=== PATIENT | male | born 1950 | race Caucasian/White ===

== ENCOUNTER → 2018-01-10 15:40 | Outpatient (CLI) | payer MEDICARE, OTHER, SELFPAY ==
--- NOTE | 2018-01-10 16:10 | RAD_ITS ---
STUDY: X-RAY - RIGHT KNEE REASON FOR EXAM: Male, 67 years old. Bilateral knee pain. No known injury. Osteoarthritis. TECHNIQUE: 4 view(s) of the knee. COMPARISON: None. FINDINGS: There is mild osteopenia. There is no significant DJD of the medial or lateral compartments. There is very slight marginal osteophytic spurring of the patellofemoral articulation. There is no effusion. Periarticular soft tissues are normal. There is no fracture. RAD/Knee 4 or More Views IMPRESSION: No significant DJD. No effusion or fracture. Electronically Signed: Kiko Salazar, at 19:10 EDT Tel , Service support ,
--- NOTE | 2018-01-10 16:13 | RAD_ITS ---
STUDY: X-RAY - LEFT KNEE REASON FOR EXAM: Male, 67 years old. Bilateral knee pain. No known injury. Osteoarthritis. TECHNIQUE: 4 view(s) of the knee. COMPARISON: None. FINDINGS: Mild osteopenia. There are no significant degenerative features of the medial, lateral or patellofemoral compartments. There is no evidence of effusion. Periarticular soft tissues are normal. No fracture. RAD/Knee 4 or More Views IMPRESSION: No significant DJD. No effusion or fracture. Electronically Signed: Kiko Salazar, at 19:12 EDT Tel , Service support ,
[2018-01-10 16:53] LABS: Absolute Lymphocyte Count 1.37 X10^3/ul (0.83-4.51); Absolute Neutrophil Count 2.8 X10^3/uL (2.0-7.7); Basophil# 0.02 X10^3/uL; Basophil% 0.4 % (0-1); Eosinophil# 0.06 X10^3/uL; Eosinophils% 1.3 % (0-5); Hematocrit 47.2 % (40-54); Hemoglobin 15.7 g/dl (13.0-16.5); Lymphocyte # 1.37 X10^3/ul (4.0); Lymphocyte % 28.5 % (19-41); Mean Corp Hgb Conc 33.3 g/gl (32-36); Mean Corpuscular Hgb 32.2 pg (27.0-32.0); Mean Corpuscular Volume 96.7 fL (80-94); Mean Platelet Vol. 11.7 fl (6.2-12.0); Monocyte# 0.51 X10^3/uL; Monocyte% 10.6 % (0-10); Neutrophil # 2.83 X10^3/uL (2.7-7.7); Platelet Count 173 K/mm3 (150-450); RBC Distribution Width CV 13.6 % (11.6-14.6); RBC Distribution Width SD 48.8 fl (35.1-43.9); Red Blood Count 4.88 M/mm3 (4.6-6.2); White Blood Count 4.8 K/mm3 (4.4-11.0)
[2018-01-10 16:54] LABS: POSITIVE COUNT NO; POSITIVE DIFFERENTIAL NO; POSITIVE MORPHOLOGY NO
[2018-01-10 17:24] LABS: AST(SGOT) 18 U/L (15-37); Alanine Aminotransfer ALT/SGPT 38 U/L (16-61); Alkaline Phosphatase 75 U/L (45-117); Anion Gap 8 (5-15); BUN 31 mg/dL (7-18); BUN/Creat Ratio 29.2 RATIO (10-20); Calcium,Total 9.3 mg/dL (8.5-10.1); Chloride 105 mmol/L (98-107); Creatinine, Serum 1.06 mg/dL (0.70-1.30); EST Glomerular Filtration Rate 74 mL/min (>60); Est Glom Filt Rate - Afr Amer 90 mL/min (>60); Glucose 84 mg/dL (74-106); PSA,Total - Annual Screen 0.86 ng/mL (0.00-4.00); Potassium 4.2 mmol/L (3.5-5.1); Sodium Level 140 mmol/L (136-145); Thyroid Stim Hormone (TSH) 0.85 uIU/mL (0.358-3.74)
[2018-01-11 10:15] LABS: Vitamin D,25 Hydroxy 37.5 ng/mL (29.95-100.01)
[2018-01-14 09:10] LABS: Hep C Antibodies <0.1 s/co ratio (0.0-0.9)
== END ==
LOC: POLAB3 15:42 → RAD 15:55
PROVIDERS: Family Provider Family Medicine Geriatric Medicine; PCP Family Medicine Geriatric Medicine; Visit Provider Family Medicine Geriatric Medicine
DX: E05.00 Thyrotoxicosis with diffuse goiter without thyrotoxic crisis or storm (principal); Z13.89 Encounter for screening for other disorder; Z12.5 Encounter for screening for malignant neoplasm of prostate; E55.9 Vitamin D deficiency, unspecified
CPT/HCPCS: 36415; 73564; 80053; 82306; 84153; 84443; 85025; 86803; G0103

== ENCOUNTER → 2018-07-08 15:08 | Outpatient (CLI) | payer MEDICARE, OTHER, SELFPAY ==
[2018-07-08 17:26] LABS: Absolute Lymphocyte Count 1.69 X10^3/ul (0.83-4.51); Absolute Neutrophil Count 3.3 X10^3/uL (2.0-7.7); Basophil# 0.03 X10^3/uL; Basophil% 0.5 % (0-1); Eosinophil# 0.03 X10^3/uL; Eosinophils% 0.5 % (0-5); Lymphocyte # 1.69 X10^3/ul (4.0); Lymphocyte % 30.1 % (19-41); Mean Corp Hgb Conc 33.3 g/gl (32-36); Mean Corpuscular Hgb 32.2 pg (27.0-32.0); Mean Corpuscular Volume 96.6 fL (80-94); Mean Platelet Vol. 12.6 fl (6.2-12.0); Monocyte# 0.56 X10^3/uL; Neutrophil # 3.29 X10^3/uL (2.7-7.7); Neutrophil % 58.7 % (47-70); Platelet Count 154 K/mm3 (150-450); RBC Distribution Width CV 13.6 % (11.6-14.6); RBC Distribution Width SD 46.9 fl (35.1-43.9); Red Blood Count 4.66 M/mm3 (4.6-6.2); White Blood Count 5.6 K/mm3 (4.4-11.0)
[2018-07-08 17:38] LABS: AST(SGOT) 13 U/L (15-37); Alanine Aminotransfer ALT/SGPT 29 U/L (16-61); Albumin, Serum 3.6 g/dL (3.2-5.0); Alkaline Phosphatase 70 U/L (45-117); Anion Gap 5 (5-15); BUN 24 mg/dL (7-18); BUN/Creat Ratio 26.4 RATIO (10-20); Calcium,Total 8.6 mg/dL (8.5-10.1); Chloride 107 mmol/L (98-107); Creatinine, Serum 0.91 mg/dL (0.70-1.30); EST Glomerular Filtration Rate 88 mL/min (>60); Est Glom Filt Rate - Afr Amer 107 mL/min (>60); Globulin 3.7 g/dL (2.2-4.2); Glucose 73 mg/dL (74-106); Potassium 4.4 mmol/L (3.5-5.1); Protein, Total 7.3 g/dL (6.4-8.2); Sodium Level 141 mmol/L (136-145); Thyroid Stim Hormone (TSH) 0.86 uIU/mL (0.358-3.74)
[2018-07-08 17:46] LABS: POSITIVE COUNT NO; POSITIVE DIFFERENTIAL NO; POSITIVE MORPHOLOGY NO
== END ==
PROVIDERS: Family Provider Family Medicine Geriatric Medicine; PCP Family Medicine Geriatric Medicine; Visit Provider Family Medicine Geriatric Medicine
DX: R53.83 Other fatigue (principal); E55.9 Vitamin D deficiency, unspecified
CPT/HCPCS: 36415; 80053; 82306; 84443; 85025

== ENCOUNTER → 2019-01-20 | Outpatient (CLI) | payer MEDICARE, OTHER, SELFPAY ==
[2019-01-20 17:25] LABS: Absolute Lymphocyte Count 1.61 X10^3/ul (0.83-4.51); Absolute Neutrophil Count 3.5 X10^3/uL (2.0-7.7); Basophil# 0.01 X10^3/uL; Basophil% 0.2 % (0-1); Eosinophil# 0.03 X10^3/uL; Eosinophils% 0.5 % (0-5); Hematocrit 45.1 % (40-54); Hemoglobin 15.1 g/dl (13.0-16.5); Lymphocyte # 1.61 X10^3/ul (4.0); Lymphocyte % 28.3 % (19-41); Mean Corp Hgb Conc 33.5 g/gl (32-36); Mean Corpuscular Hgb 32.4 pg (27.0-32.0); Mean Corpuscular Volume 96.8 fL (80-94); Mean Platelet Vol. 12.1 fl (6.2-12.0); Monocyte# 0.57 X10^3/uL; Neutrophil # 3.46 X10^3/uL (2.7-7.7); Neutrophil % 60.8 % (47-70); Platelet Count 170 K/mm3 (150-450); RBC Distribution Width CV 14.1 % (11.6-14.6); RBC Distribution Width SD 49.7 fl (35.1-43.9); Red Blood Count 4.66 M/mm3 (4.6-6.2); White Blood Count 5.7 K/mm3 (4.4-11.0)
[2019-01-20 17:35] LABS: POSITIVE COUNT NO; POSITIVE DIFFERENTIAL NO; POSITIVE MORPHOLOGY NO
[2019-01-20 17:55] LABS: Vitamin D,25 Hydroxy 42.2 ng/mL (29.95-100.01)
[2019-01-20 18:15] LABS: ALB/GLOB Ratio 0.9 RATIO (0.9-2.4); AST(SGOT) 18 U/L (15-37); Alanine Aminotransfer ALT/SGPT 29 U/L (16-61); Albumin, Serum 3.5 g/dL (3.2-5.0); Alkaline Phosphatase 75 U/L (45-117); Anion Gap 9 (5-15); BUN 26 mg/dL (7-18); Calcium,Total 8.4 mg/dL (8.5-10.1); Chloride 104 mmol/L (98-107); Creatinine, Serum 1.18 mg/dL (0.70-1.30); EST Glomerular Filtration Rate 65 mL/min (>60); Est Glom Filt Rate - Afr Amer 79 mL/min (>60); Globulin 3.8 g/dL (2.2-4.2); Glucose 84 mg/dL (74-106); PSA,Total - Annual Screen 0.92 ng/mL (0.00-4.00); Potassium 3.9 mmol/L (3.5-5.1); Protein, Total 7.3 g/dL (6.4-8.2); Sodium Level 140 mmol/L (136-145); Thyroid Stim Hormone (TSH) 0.84 uIU/mL (0.358-3.74)
== END | disposition home or self-care (01) ==
LOC: POLAB3 13:50
PROVIDERS: Family Provider Family Medicine Geriatric Medicine; PCP Family Medicine Geriatric Medicine; Visit Provider Family Medicine Geriatric Medicine
DX: E55.9 Vitamin D deficiency, unspecified (principal); R53.83 Other fatigue; Z12.5 Encounter for screening for malignant neoplasm of prostate
CPT/HCPCS: 36415; 80053; 82306; 84153; 84443; 85025; G0103

== ENCOUNTER → 2019-07-29 15:17 | Outpatient (CLI) | payer MEDICARE, OTHER, SELFPAY ==
[2019-07-29 17:24] LABS: Absolute Lymphocyte Count 1.68 X10^3/uL (0.83-4.51); Basophil# 0.02 X10^3/uL; Basophil% 0.3 % (0-1); Eosinophil# 0.03 X10^3/uL; Eosinophils% 0.5 % (0-5); Hematocrit 46.2 % (40-54); Hemoglobin 15.4 g/dL (13.0-16.5); Lymphocyte # 1.68 X10^3/ul (4.0); Lymphocyte % 26.2 % (19-41); Mean Corp Hgb Conc 33.3 g/dL (32-36); Mean Corpuscular Hgb 32.5 pg (27.0-32.0); Mean Corpuscular Volume 97.5 fL (80-94); Mean Platelet Vol. 12.1 fl (6.2-12.0); Monocyte# 0.66 X10^3/uL; Monocyte% 10.3 % (0-10); NRBC Flagged by Analyzer 0 % (0-5); Neutrophil % 62.4 % (47-70); Platelet Count 151 K/mm3 (150-450); RBC Distribution Width CV 13.6 % (11.6-14.6); RBC Distribution Width SD 49.4 fl (35.1-43.9); Red Blood Count 4.74 M/mm3 (4.6-6.2); White Blood Count 6.4 K/mm3 (4.4-11.0)
[2019-07-29 17:36] LABS: AST(SGOT) 20 U/L (15-37); Alanine Aminotransfer ALT/SGPT 34 U/L (16-61); Albumin, Serum 3.6 g/dL (3.2-5.0); Alkaline Phosphatase 76 U/L (45-117); Anion Gap 5 (5-15); BUN 30 mg/dL (7-18); BUN/Creat Ratio 21.7 RATIO (10-20); Calcium,Total 8.8 mg/dL (8.5-10.1); Chloride 105 mmol/L (98-107); Creatinine, Serum 1.38 mg/dL (0.70-1.30); EST Glomerular Filtration Rate 54 mL/min (>60); Est Glom Filt Rate - Afr Amer 66 mL/min (>60); Globulin 3.7 g/dL (2.2-4.2); Glucose 85 mg/dL (74-106); Potassium 4.3 mmol/L (3.5-5.1); Protein, Total 7.3 g/dL (6.4-8.2); Sodium Level 139 mmol/L (136-145); Thyroid Stim Hormone (TSH) 0.49 uIU/mL (0.358-3.74)
== END ==
PROVIDERS: Family Provider Family Medicine Geriatric Medicine; PCP Family Medicine Geriatric Medicine; Visit Provider Family Medicine Geriatric Medicine
DX: R53.83 Other fatigue (principal)
CPT/HCPCS: 36415; 80053; 84443; 85025

== ENCOUNTER → 2020-01-29 15:03 | Outpatient (CLI) | payer MEDICARE, OTHER, SELFPAY ==
[2020-01-29 15:47] LABS: Absolute Lymphocyte Count 1.69 X10^3/uL (0.83-4.51); Absolute Neutrophil Count 2.8 X10^3/uL (2.0-7.7); Basophil# 0.04 X10^3/uL; Basophil% 0.7 % (0-1); Eosinophil# 0.09 X10^3/uL; Eosinophils% 1.7 % (0-5); Hematocrit 46.1 % (40-54); Hemoglobin 15.1 g/dL (13.0-16.5); Lymphocyte # 1.69 X10^3/ul (4.0); Lymphocyte % 31.6 % (19-41); Mean Corp Hgb Conc 32.8 g/dL (32-36); Mean Corpuscular Hgb 32.1 pg (27.0-32.0); Mean Corpuscular Volume 98.1 fL (80-94); Mean Platelet Vol. 11.9 fl (6.2-12.0); Monocyte# 0.69 X10^3/uL; Monocyte% 12.9 % (0-10); NRBC Flagged by Analyzer 0 % (0-5); Neutrophil # 2.83 X10^3/uL (2.7-7.7); Neutrophil % 52.9 % (47-70); Platelet Count 172 K/mm3 (150-450); RBC Distribution Width CV 13.4 % (11.6-14.6); RBC Distribution Width SD 49.1 fl (35.1-43.9); White Blood Count 5.4 K/mm3 (4.4-11.0)
[2020-01-29 16:03] LABS: Vitamin D,25 Hydroxy 64.2 ng/mL
[2020-01-29 16:12] LABS: AST(SGOT) 19 U/L (15-37); Alanine Aminotransfer ALT/SGPT 32 U/L (16-61); Albumin, Serum 3.7 g/dL (3.2-5.0); Alkaline Phosphatase 75 U/L (45-117); Anion Gap 5 (5-15); BUN 22 mg/dL (7-18); Calcium,Total 9.2 mg/dL (8.5-10.1); Chloride 108 mmol/L (98-107); Creatinine, Serum 0.96 mg/dL (0.70-1.30); EST Glomerular Filtration Rate 83 mL/min (>60); Est Glom Filt Rate - Afr Amer 100 mL/min (>60); Globulin 3.8 g/dL (2.2-4.2); Glucose 118 mg/dL (74-106); Potassium 3.8 mmol/L (3.5-5.1); Protein, Total 7.5 g/dL (6.4-8.2); Sodium Level 143 mmol/L (136-145); Thyroid Stim Hormone (TSH) 0.53 uIU/mL (0.358-3.74)
== END ==
PROVIDERS: PCP Family Medicine Geriatric Medicine; Visit Provider Family Medicine Geriatric Medicine
DX: E55.9 Vitamin D deficiency, unspecified (principal); R53.83 Other fatigue; Z12.5 Encounter for screening for malignant neoplasm of prostate
CPT/HCPCS: 36415; 80053; 82306; 84153; 84443; 85025; G0103

== ENCOUNTER → 2020-07-29 13:01 | Outpatient (CLI) | payer MEDICARE, OTHER, SELFPAY ==
[2020-07-29 14:41] LABS: Absolute Neutrophil Count 2.8 X10^3/uL (2.0-7.7); Basophil# 0.03 X10^3/uL; Basophil% 0.6 % (0-1); Eosinophil# 0.03 X10^3/uL; Eosinophils% 0.6 % (0-5); Hematocrit 45.3 % (40-54); Hemoglobin 15.5 g/dL (13.0-16.5); Lymphocyte % 25.8 % (19-41); Mean Corp Hgb Conc 34.2 g/dL (32-36); Mean Corpuscular Hgb 32.6 pg (27.0-32.0); Mean Corpuscular Volume 95.4 fL (80-94); Mean Platelet Vol. 12.1 fl (6.2-12.0); Monocyte# 0.55 X10^3/uL; Monocyte% 11.8 % (0-10); NRBC Flagged by Analyzer 0 % (0-5); Neutrophil # 2.83 X10^3/uL (2.7-7.7); Platelet Count 159 K/mm3 (150-450); RBC Distribution Width CV 13.2 % (11.6-14.6); RBC Distribution Width SD 46.8 fl (35.1-43.9); Red Blood Count 4.75 M/mm3 (4.6-6.2); White Blood Count 4.7 K/mm3 (4.4-11.0)
[2020-07-29 14:57] LABS: Vitamin D,25 Hydroxy 62.2 ng/mL
[2020-07-29 15:05] LABS: AST(SGOT) 16 U/L (15-37); Alanine Aminotransfer ALT/SGPT 28 U/L (16-61); Albumin, Serum 3.8 g/dL (3.2-5.0); Alkaline Phosphatase 90 U/L (45-117); Anion Gap 3 (5-15); BUN 28 mg/dL (7-18); BUN/Creat Ratio 29.4 RATIO (10-20); Chloride 105 mmol/L (98-107); Creatinine, Serum 0.95 mg/dL (0.70-1.30); EST Glomerular Filtration Rate 83 mL/min (>60); Est Glom Filt Rate - Afr Amer 101 mL/min (>60); Globulin 3.8 g/dL (2.2-4.2); Glucose 85 mg/dL (74-106); Protein, Total 7.6 g/dL (6.4-8.2); Sodium Level 139 mmol/L (136-145); Thyroid Stim Hormone (TSH) 0.61 uIU/mL (0.358-3.74)
== END ==
PROVIDERS: PCP Family Medicine Geriatric Medicine; Visit Provider Family Medicine Geriatric Medicine
DX: E55.9 Vitamin D deficiency, unspecified (principal); R53.83 Other fatigue
CPT/HCPCS: 36415; 80053; 82306; 84443; 85025

== ENCOUNTER → 2021-02-03 14:34 | Outpatient (CLI) | payer MEDICARE, OTHER, SELFPAY ==
[2021-02-03 16:03] LABS: Absolute Lymphocyte Count 1.46 X10^3/uL (0.83-4.51); Absolute Neutrophil Count 2.3 X10^3/uL (2.0-7.7); Basophil# 0.03 X10^3/uL; Basophil% 0.7 % (0-1); Eosinophil# 0.03 X10^3/uL; Eosinophils% 0.7 % (0-5); Hematocrit 44.8 % (40-54); Hemoglobin 14.9 g/dL (13.0-16.5); Lymphocyte # 1.46 X10^3/ul (0.83-4.51); Lymphocyte % 33.7 % (19-41); Mean Corp Hgb Conc 33.3 g/dL (32-36); Mean Corpuscular Hgb 31.8 pg (27.0-32.0); Mean Corpuscular Volume 95.7 fL (80-94); Mean Platelet Vol. 12.4 fl (6.2-12.0); Monocyte# 0.55 X10^3/uL; Monocyte% 12.7 % (0-10); NRBC Flagged by Analyzer 0 % (0-5); Neutrophil # 2.25 X10^3/uL (2.7-7.7); Platelet Count 164 K/mm3 (150-450); RBC Distribution Width CV 13.2 % (11.6-14.6); RBC Distribution Width SD 47.1 fl (35.1-43.9); Red Blood Count 4.68 M/mm3 (4.6-6.2); White Blood Count 4.3 K/mm3 (4.4-11.0)
[2021-02-03 16:18] LABS: Vitamin D,25 Hydroxy 79.2 ng/mL
[2021-02-03 16:24] LABS: AST(SGOT) 24 U/L (15-37); Alanine Aminotransfer ALT/SGPT 34 U/L (16-61); Albumin, Serum 3.8 g/dL (3.2-5.0); Alkaline Phosphatase 88 U/L (45-117); Anion Gap 7 (5-15); BUN 26 mg/dL (7-18); BUN/Creat Ratio 24.8 RATIO (10-20); Calcium,Total 8.9 mg/dL (8.5-10.1); Chloride 106 mmol/L (98-107); Creatinine, Serum 1.05 mg/dL (0.70-1.30); EST Glomerular Filtration Rate 74 mL/min (>60); Est Glom Filt Rate - Afr Amer 90 mL/min (>60); Globulin 3.7 g/dL (2.2-4.2); Glucose 84 mg/dL (74-106); PSA,Total - Annual Screen 1.08 ng/mL (0.00-4.00); Potassium 4.1 mmol/L (3.5-5.1); Protein, Total 7.5 g/dL (6.4-8.2); Sodium Level 141 mmol/L (136-145); Thyroid Stim Hormone (TSH) 0.62 uIU/mL (0.358-3.74)
== END ==
PROVIDERS: PCP Family Medicine Geriatric Medicine; Visit Provider Family Medicine Geriatric Medicine
DX: E55.9 Vitamin D deficiency, unspecified (principal); R53.83 Other fatigue; Z12.5 Encounter for screening for malignant neoplasm of prostate
CPT/HCPCS: 36415; 80053; 82306; 84153; 84443; 85025; G0103

== ENCOUNTER 2021-03-16 05:49 | Day surgery (SDC) | payer MEDICARE, OTHER, SELFPAY ==
[2021-02-22 14:39] VITALS: BMI 20.9
--- NOTE | 2021-03-11 08:30 | EKG12_ITS ---
Test Reason : PREOP Blood Pressure : / mmHG Vent. Rate : 065 BPM Atrial Rate : 065 BPM P-R Int : 188 ms QRS Dur : 092 ms QT Int : 388 ms P-R-T Axes : 062 029 020 degrees QTc Int : 403 ms Sinus rhythm with occasional Premature ventricular complexes Otherwise normal ECG Confirmed by SHARA GEORGE, TINO ([id number]), assistant film editor ELIZ ARANDA ([id number]) on 03/14/2021 1:12:30 PM Referred By: CONNER Confirmed By:TINO OLMEDO MD
[2021-03-11 09:43] LABS: Mean Corp Hgb Conc 32.6 g/dL (32-36); Mean Corpuscular Hgb 31.8 pg (27.0-32.0); Mean Corpuscular Volume 97.7 fL (80-94); Mean Platelet Vol. 12.1 fl (6.2-12.0); Platelet Count 149 K/mm3 (150-450); RBC Distribution Width CV 13.9 % (11.6-14.6); RBC Distribution Width SD 50.5 fl (35.1-43.9); White Blood Count 4.6 K/mm3 (4.4-11.0)
[2021-03-11 10:10] LABS: Anion Gap 7 (5-15); BUN 23 mg/dL (7-18); BUN/Creat Ratio 25.7 RATIO (10-20); Calcium,Total 8.5 mg/dL (8.5-10.1); Chloride 105 mmol/L (98-107); EST Glomerular Filtration Rate 89 mL/min (>60); Est Glom Filt Rate - Afr Amer 108 mL/min (>60); Glucose 96 mg/dL (74-106); Sodium Level 140 mmol/L (136-145)
[2021-03-16] VITALS (7 sets, daily range): BP systolic 130–153; BP diastolic 62–97; PULSE 66–87; RESP 16–18; TEMP 36.1–36.9; O2SAT 97–100; BMI 21.0
--- NOTE | 2021-03-16 06:04 | HP.PCM_ITS ---
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 Accompanied by: Self Is patient in pain?: No Allergies No Known Allergies Allergy (Verified 02/22/21 14:40) Medications famotidine 40 mg tablet 40 mg PO DAILY tab 02/22/21 [History Confirmed 02/22/21] rwbsmuuv-jvo-funlq acid 300 mcg-lycopene 600 mcg-lutein 300 mcg tablet 1 tab PO DAILY 02/22/21 [History Confirmed 02/22/21] pravastatin 40 mg tablet 40 mg PO QHS tab 02/22/21 [History Confirmed 02/22/21] tamsulosin 0.4 mg capsule 0.4 mg PO DAILY 21 Days #21 cap 02/22/21 [Rx Confirmed 02/22/21] vit C,E,zinc,Nr-nrkon-1-lutein-zeaxanthin 250 mg-2.5 mg-0.5 mg capsule cap PO 02/22/21 [History Confirmed 02/22/21] PFSH Medical History (Updated 02/22/21 @ 16:[address] Molina Beach MD) GERD (gastroesophageal reflux disease) Graves disease High blood cholesterol Osteoarthritis Surgical History (Updated 02/22/21 @ 14:37 by Quyen Richards) History of colonoscopy History of tonsillectomy and adenoidectomy Family History (Updated 02/22/21 @ 14:38 by Quyen Richards) Brother Diabetes Thyroid disorder Father Heart disease Myocardial infarction Mother Breast cancer Daughter Breast cancer Social History (Updated 02/22/21 @ 14:39 by Quyen Richards) Smoking Status: Never smoker second hand exposure: No alcohol intake: current alcohol intake frequency: a few times a month substance use type: does not use what type of physical activity do you participate in: none frequency: does not exercise HPI HPI HPI: PETRA GABRIEL, is a 70 M who presents to the office today for surgical consultation regarding a suspected right inguinal hernia. The patient is refe rred by Dr. Endy Sandy and a written copy my surgical consult recommendations will return to him. On the patient's routine annual exam right inguinal hernia was discussed consideration for surgical repair. The patient states he noticed this about 3 months or so ago. For age 70 he is incredibly physically active. He has always done a lot of work and has been active. He has never used cigaret corina. He is enjoying a high quality of life. He has noted a bulge in the right groin but does not recall a particular incident or accident. He states that over the holiday weekend he worked 7 hours out in 90 degree heat. States he did feel somewhat fatigued after that. He is very much interested in maintaining an active lifestyle. He has nocturia only infrequently. ROS General General: No weight change, appetite, fatigue, colon cancer, breast cancer or weakness HEENT HEENT: No difficulty swallowing, eye injury, eye surgery, swollen glands or hoarseness Endo Endocrine: No thyroid disease, diabetes mellitus, thyroid cancer, Hair loss, heat intolerance or cold intolerance Skin Skin: No rash or changing moles Musc Musculoskeletal: No back problems, arthritis, rheumatoid arthritis, gout or joint pain Cardio Cardiovascular: No murmur, pacemaker, heart disease, atrial fibrillation, high blood pressure, heart attack, heart stent, palpitations, shortness of breat with exertion or chest pain Psych Psychiatric: No depression, anxiety or hearing voices Resp Respiratory: No shortness of breath, No sleep apnea, No cough, No COPD, No asthma, No emphysema and No wheezing Gastro Gastrointestinal: No abdominal pain, No nausea or vomiting, No diarrhea, No constipation, No blood in stool, No acid reflux, No hemorrhoids, No ulcers, No gallbladder problem and No black,tarry stools [place] Hematologic: No blood thinners, No blood disorders, No bleeding, No anemia and No blood clots Neuro Neurologic: No weakness Exam Const General: cooperative, healthy appearing, comfortable, no acute distress and well developed Nutritional Appearance: average body habitus [facility] Head: normal to inspection Eyes General: appearance normal, both eyes and all related structures Resp Effort & Inspection: normal respiratory effort Auscultation: clear to auscultation bilaterally Cardio Rate: regular rate Rhythm: regular rhythm GI Palpation: soft and no hepatosplenomegaly Auscultation: normal bowel sounds Other: Testicles are descended without mass. Obvious right inguinal hernia currently reducible. Somewhat smaller but clearly present left inguinal hernia. Reducible Skin General: no rashes or lesions noted Neuro General: patient alert and patient awake Cognition: normal cognition Extrem General: no calf tenderness bilaterally Psych Appearance: grossly normal Attitude: cooperative COVID (Procedure Consent) Procedure Criteria Procedure Criteria: Yes Elective The surgeon/proceduralist and patient have discussed in detail the risk of exposure to and/or potential harm posed by the COVID-19 virus with having a surgery/procedure at this time versus the risk of delaying the surgery/procedure. It is not possible to know either the risk of delaying the surgery or procedure or chance of getting an infection with perfect accuracy, but a joint decision was made between the patient and the surgeon/proceduralist to proceed at this time with the scheduled surgery/procedure as indicated on the consent form. Assessment and Plan Assessment and Plan (1) Bilateral inguinal hernia, without obstruction or gangrene, recurrent: Status: Acute Plan - Dr. Molina Beach MD: 70-year-old gentleman with bilateral inguinal hernias. He is very physically active. I recommend to him a laparoscopic bilateral inguinal herniorrhaphy with mesh. In detail I described the technique, benefit, risk, alternatives. He has had an opportunity to ask and have questions answered. We will schedule and proceed at his discretion. Because of the increased risk of urinary retention I do recommend that we initiate Flomax 0.4 mg nightly 2 weeks preoperatively. He will be provided none for 3-week course. He is aware that even with this there is a potential of requiring a Agosto catheter to gravity at the time of outpatient discharge. I appreciate the opportunity of assisting with surgical care Copy: Dr. Endy Beach M.D., F.A.C.S. Plan Details Other Medications: New: tamsulosin (Flomax) Start prescription 2 weeks prior to sx 0.4 mg PO DAILY 3 weeks 21 caps 0RF Coding Level of Care Code 90276 Diagnoses Bilateral inguinal hernia, without obstruction or gangrene, recurrent K40.21 I have re-examined the patient. There are no clinical changes since date of exam.
--- NOTE | 2021-03-16 06:04 | DCINST_ITS ---
Discharge Instructions Procedure Hernia Diet Discharge Diet: Light diet - advance as tolerated Activity Discharge Activity: Return to Normal Activity, May Drive (when you are no longer taking narcotic pain medications.) and May Shower (with the bandage in place 1-2 days after surgery.) Lifting Restrictions: 20 pounds for 8 weeks. Additional Activity Instructions:: Climbing stairs is fine, walking is e ncouraged. Sitting in bed may be uncomfortable. Sitting up using your lateral muscles (sitting up sideways) is usually more comfortable. Do not drive, work heavy equipment of sign legal documents for 24 hours. If your hernia repair was an ingunial repair, you may have scrotal swelling, an ice pack and/or athletic support can provide more comfort. Pain medications may cause nausea, you should typically eat light foods as you take your pain medications. Pain medications may also cause constipation. If you have difficulty with this, discuss with your doctor. Dressing / Incision Call your doctor if your incision/area has: Continuous Slow Oozing, Sudden Increased Bleeding, Increased Pain/ Swelling, Increased Redness and Foul Smelling Discharge Call your doctor if you observe: Fever of 101 or Higher Suture Line Care: Avoid Pulling/Pushing and Avoid Pinching/Bending Additional Dressing/Incision Instructions:: Leave the operative bandage on for 2-3 days. When you remove the bandage, leave the steri-strips on place until your follow up appointment or they fall off. Follow Up Care Please Follow Up With: Molina Beach MD When: Call [phone] to make an appointment to be seen in 7 days. Test Results: Test results from this visit will be discussed in further detail at your follow-up appointment, if applicable. Discharge Plan Admission Attending Provider: Molina Beach Primary Care Provider: Endy Sandy Chi Discharge Orders/Prescriptions Prescriptions: No Action famotidine 40 mg tablet 40 mg PO DAILY RF: 0 pravastatin 40 mg tablet 40 mg PO QHS RF: 0 vit C,E,Zn,Pv-zzzyr9-oqh-zeax 250-2.5-0.5 mg capsule 1 cap PO BID RF: 0 Centrum Silver Ultra Men's 300-600-300 mcg tablet 1 tab PO DAILY RF: 0
[2021-03-16] MEDS: Lactated Ringers 1,000 ML 100 ML IV ×2 (06:30→09:24)
[2021-03-16] MEDS: Cefazolin 2 GM in 0.9% Normal Saline 100 ML IV (07:19)
[2021-03-16] MEDS: Bupivacaine Mpf 0.5% 30 ML VIAL (08:38)
--- NOTE | 2021-03-16 08:40 | OP.PCM_ITS ---
Problems Associated Problem List Diagnoses (1) Bilateral inguinal hernia, without obstruction or gangrene, recurrent: Report of Operation Date of Procedure: 03/16/21 Pre-Operative Diagnosis: Bilateral inguinal hernias Post-Operative Diagnosis: Bilateral direct and indirect inguinal hernias Surgery/Procedure Performed:: Laparoscopic bilateral inguinal herniorrhaphy Right Bard 3D max mesh extra-large Lot number [id number]. Reference [id number]. Expiry date 09/16/2024 Left Bard 3D max mesh large Lot number [id number]. Reference #[id number]. Expiry date 09/16/2024 Secure strap Lot number [id number] Description of Surgical Findings:: Timeout and informed consent was obtained. 70-year-old gentleman was taken the operating placed on the table underwent general endotracheal intubation esthesia. Ancef 2 g were given intravenously. The abdomen sterilely prepped and draped. 0.5% Marcaine was used as a local anesthetic. Skin sites were preanesthetized. A vertical infraumbilical incisio n was created holding sutures of 0 Vicryl placed varies needle inserted saline drop test performed the abdomen was insufflated with CO2 to a pressure of 10 mmHg pressure. 10 mm trocar inserted. 10 mm laparoscope inserted. No evidence of any trocar injuries. 5 mm trochars were placed in the right and left lower quadrant. Ilioinguinal nerve block performed bilaterally under laparoscopic control. The peritoneum superior lateral to the internal ring on the right was incised carried medially. The peritoneum was completely dissected free. The direct and indirect and femoral areas clearly dissected. It became apparent that there was both the direct and indirect hernia on the right. I then did a similar dissection on the left incising the peritoneum and reflecting it free. And again similarly on the left there was both a indirect indirect defect. Because of the amount of the dissection of that I performed on the right I placed an extra-large Bard 3D max mesh. It very nicely covered my dissected area and the defect areas. It was secured in place with silk sutures to secure strap medially superiorly and laterally. I placed a Bard 3D max left-sided mesh large on the left. Secured it in straight place with secure strap. It met the mesh from the right. Excellent positioning and coverage by each piece of mesh was achieved. The peritoneum was then approximated to itself bilaterally completely obliterating access of the mesh. This was done with secure strap and hemolock clips. Blood loss have been minimal excellent completion. The abdomen was allowed to deflate of the CO2 through an antiviral valve. Trochars were removed. The fascia at the umbilicus approximated with 2-0 Vicryl zylxbr-ni-ludbj suture. Skin edges approximated opted for Monocryl subdermal stitches. Steri-Strips Telfa OpSite dressings applied. Sponge and instrument and needle counts were reported to certainly be correct. Specimens none. Drains none. Blood loss minimal. The patient was taken to recovery area in satisfactory addition without apparent complication Molina Beach M.D., F.A.C.S. Surgeon: Molina Beach
== END 2021-03-16 11:46 | disposition home or self-care (01) ==
LOC: SDC 06:02 → AC 06:03
PROVIDERS: PCP Family Medicine Geriatric Medicine; Referring Provider Family Medicine Geriatric Medicine; Visit Provider Surgery
PROC: (CPT 49650; principal; 2021-03-16 07:10)
DX: K40.20 Bilateral inguinal hernia, without obstruction or gangrene, not specified as recurrent (principal); K21.9 Gastro-esophageal reflux disease without esophagitis; M19.90 Unspecified osteoarthritis, unspecified site; Z79.899 Other long term (current) drug therapy
CPT/HCPCS: 49650; 36415; 80048; 85027; 93005; J7120; C1781; J2405

== ENCOUNTER → 2021-08-09 13:08 | Outpatient (CLI) | payer MEDICARE, OTHER, SELFPAY ==
[2021-08-09 16:30] LABS: Absolute Lymphocyte Count 1.42 X10^3/uL (0.83-4.51); Basophil# 0.04 X10^3/uL; Basophil% 0.8 % (0-1); Eosinophils% 1.9 % (0-5); Hematocrit 44.7 % (40-54); Hemoglobin 15.2 g/dL (13.0-16.5); Lymphocyte # 1.42 X10^3/ul (0.83-4.51); Lymphocyte % 27.4 % (19-41); Mean Corpuscular Hgb 33.1 pg (27.0-32.0); Mean Corpuscular Volume 97.4 fL (80-94); Mean Platelet Vol. 12.5 fl (6.2-12.0); Monocyte# 0.66 X10^3/uL; Monocyte% 12.7 % (0-10); NRBC Flagged by Analyzer 0 % (0-5); Neutrophil # 2.95 X10^3/uL (2.7-7.7); Platelet Count 168 K/mm3 (150-450); RBC Distribution Width CV 13.6 % (11.6-14.6); RBC Distribution Width SD 48.5 fl (35.1-43.9); Red Blood Count 4.59 M/mm3 (4.6-6.2); White Blood Count 5.2 K/mm3 (4.4-11.0)
[2021-08-09 16:55] LABS: ALB/GLOB Ratio 0.9 RATIO (0.9-2.4); AST(SGOT) 17 U/L (15-37); Alanine Aminotransfer ALT/SGPT 29 U/L (16-61); Albumin, Serum 3.5 g/dL (3.2-5.0); Alkaline Phosphatase 85 U/L (45-117); Anion Gap 3 (5-15); BUN 30 mg/dL (7-18); BUN/Creat Ratio 27.8 RATIO (10-20); Calcium,Total 9.4 mg/dL (8.5-10.1); Chloride 107 mmol/L (98-107); Creatinine, Serum 1.08 mg/dL (0.70-1.30); EST Glomerular Filtration Rate 72 mL/min (>60); Est Glom Filt Rate - Afr Amer 87 mL/min (>60); Globulin 3.8 g/dL (2.2-4.2); Glucose 105 mg/dL (74-106); Potassium 4.2 mmol/L (3.5-5.1); Protein, Total 7.3 g/dL (6.4-8.2); Sodium Level 141 mmol/L (136-145); Thyroid Stim Hormone (TSH) 0.65 uIU/mL (0.358-3.74)
== END ==
PROVIDERS: PCP Family Medicine Geriatric Medicine; Visit Provider Family Medicine Geriatric Medicine
DX: E55.9 Vitamin D deficiency, unspecified (principal); R53.83 Other fatigue
CPT/HCPCS: 36415; 80053; 82306; 84443; 85025

== ENCOUNTER → 2022-03-07 | Outpatient (CLI) | payer MEDICARE, OTHER, SELFPAY ==
[2022-03-07 17:18] LABS: Absolute Lymphocyte Count 1.27 X10^3/uL (0.83-4.51); Absolute Neutrophil Count 3.8 X10^3/uL (2.0-7.7); Basophil# 0.02 X10^3/uL; Basophil% 0.4 % (0-1); Eosinophil# 0.02 X10^3/uL; Eosinophils% 0.4 % (0-5); Hematocrit 44.3 % (40-54); Hemoglobin 14.8 g/dL (13.0-16.5); Lymphocyte # 1.27 X10^3/ul (0.83-4.51); Lymphocyte % 22.4 % (19-41); Mean Corp Hgb Conc 33.4 g/dL (32-36); Mean Corpuscular Hgb 32.5 pg (27.0-32.0); Mean Corpuscular Volume 97.1 fL (80-94); Mean Platelet Vol. 12.1 fl (6.2-12.0); Monocyte# 0.48 X10^3/uL; Monocyte% 8.5 % (0-10); NRBC Flagged by Analyzer 0 % (0-5); Neutrophil # 3.84 X10^3/uL (2.7-7.7); Neutrophil % 67.8 % (47-70); Platelet Count 178 K/mm3 (150-450); RBC Distribution Width CV 12.9 % (11.6-14.6); RBC Distribution Width SD 46.5 fl (35.1-43.9); Red Blood Count 4.56 M/mm3 (4.6-6.2); White Blood Count 5.7 K/mm3 (4.4-11.0)
[2022-03-07 17:33] LABS: Vitamin D,25 Hydroxy 68.9 ng/mL
[2022-03-07 17:46] LABS: ALB/GLOB Ratio 0.8 RATIO (0.9-2.4); AST(SGOT) 27 U/L (15-37); Alanine Aminotransfer ALT/SGPT 37 U/L (16-61); Albumin, Serum 3.4 g/dL (3.2-5.0); Alkaline Phosphatase 74 U/L (45-117); Anion Gap 7 (5-15); BUN 32 mg/dL (7-18); BUN/Creat Ratio 28.6 RATIO (10-20); Calcium,Total 9.4 mg/dL (8.5-10.1); Chloride 107 mmol/L (98-107); Creatinine, Serum 1.12 mg/dL (0.70-1.30); EST Glomerular Filtration Rate 69 mL/min (>60); Est Glom Filt Rate - Afr Amer 83 mL/min (>60); Globulin 4.1 g/dL (2.2-4.2); Glucose 100 mg/dL (74-106); Potassium 3.9 mmol/L (3.5-5.1); Protein, Total 7.5 g/dL (6.4-8.2); Sodium Level 142 mmol/L (136-145); Thyroid Stim Hormone (TSH) 0.87 uIU/mL (0.358-3.74)
== END | disposition home or self-care (01) ==
LOC: POLAB3 13:43
PROVIDERS: PCP Family Medicine Geriatric Medicine; Visit Provider Family Medicine Geriatric Medicine
DX: R53.83 Other fatigue (principal); E55.9 Vitamin D deficiency, unspecified
CPT/HCPCS: 36415; 80053; 82306; 84443; 85025

== ENCOUNTER → 2022-09-05 | Outpatient (CLI) | payer MEDICARE, OTHER, SELFPAY ==
[2022-09-05 13:34] LABS: Absolute Lymphocyte Count 1.58 X10^3/uL (0.83-4.51); Absolute Neutrophil Count 2.8 X10^3/uL (2.0-7.7); Basophil# 0.04 X10^3/uL; Basophil% 0.8 % (0-1); Eosinophil# 0.03 X10^3/uL; Eosinophils% 0.6 % (0-5); Hematocrit 44.6 % (40-54); Hemoglobin 14.9 g/dL (13.0-16.5); Lymphocyte # 1.58 X10^3/ul (0.83-4.51); Lymphocyte % 31.7 % (19-41); Mean Corp Hgb Conc 33.4 g/dL (32-36); Mean Corpuscular Hgb 31.8 pg (27.0-32.0); Mean Corpuscular Volume 95.1 fL (80-94); Mean Platelet Vol. 11.5 fl (6.2-12.0); Monocyte# 0.55 X10^3/uL; NRBC Flagged by Analyzer 0 % (0-5); Neutrophil # 2.78 X10^3/uL (2.7-7.7); Neutrophil % 55.7 % (47-70); Platelet Count 149 K/mm3 (150-450); RBC Distribution Width CV 13.6 % (11.6-14.6); RBC Distribution Width SD 47.8 fl (35.1-43.9); Red Blood Count 4.69 M/mm3 (4.6-6.2)
[2022-09-05 14:12] LABS: Vitamin D,25 Hydroxy 58.3 ng/mL
[2022-09-05 14:19] LABS: ALB/GLOB Ratio 0.9 RATIO (0.9-2.4); AST(SGOT) 17 U/L (15-37); Alanine Aminotransfer ALT/SGPT 22 U/L (16-61); Albumin, Serum 3.6 g/dL (3.2-5.0); Alkaline Phosphatase 81 U/L (45-117); Anion Gap 3 (5-15); BUN 24 mg/dL (7-18); BUN/Creat Ratio 23.5 RATIO (10-20); Calcium,Total 9.1 mg/dL (8.5-10.1); Chloride 108 mmol/L (98-107); Creatinine, Serum 1.02 mg/dL (0.70-1.30); EST Glomerular Filtration Rate 76 mL/min (>60); Est Glom Filt Rate - Afr Amer 92 mL/min (>60); Globulin 3.8 g/dL (2.2-4.2); Glucose 117 mg/dL (74-106); Potassium 4.3 mmol/L (3.5-5.1); Protein, Total 7.4 g/dL (6.4-8.2); Sodium Level 140 mmol/L (136-145); Thyroid Stim Hormone (TSH) 0.83 uIU/mL (0.358-3.74)
== END | disposition home or self-care (01) ==
LOC: POLAB3 13:10
PROVIDERS: PCP Family Medicine Geriatric Medicine; Visit Provider Family Medicine Geriatric Medicine
DX: R53.83 Other fatigue (principal); E55.9 Vitamin D deficiency, unspecified
CPT/HCPCS: 36415; 80053; 82306; 84443; 85025

== ENCOUNTER → 2023-03-13 | Outpatient (CLI) | payer MEDICARE, OTHER, SELFPAY ==
[2023-03-13 16:58] LABS: Absolute Lymphocyte Count 1.65 X10^3/uL (0.83-4.51); Absolute Neutrophil Count 2.6 X10^3/uL (2.0-7.7); Basophil# 0.04 X10^3/uL; Basophil% 0.8 % (0-1); Eosinophil# 0.06 X10^3/uL; Eosinophils% 1.2 % (0-5); Hematocrit 44.5 % (40-54); Hemoglobin 14.8 g/dL (13.0-16.5); Lymphocyte # 1.65 X10^3/ul (0.83-4.51); Lymphocyte % 32.7 % (19-41); Mean Corp Hgb Conc 33.3 g/dL (32-36); Mean Corpuscular Hgb 32.7 pg (27.0-32.0); Mean Corpuscular Volume 98.2 fL (80-94); Mean Platelet Vol. 12.1 fl (6.2-12.0); Monocyte# 0.63 X10^3/uL; Monocyte% 12.5 % (0-10); NRBC Flagged by Analyzer 0 % (0-5); Neutrophil # 2.64 X10^3/uL (2.7-7.7); Neutrophil % 52.4 % (47-70); Platelet Count 153 K/mm3 (150-450); RBC Distribution Width CV 13.9 % (11.6-14.6); RBC Distribution Width SD 50.4 fl (35.1-43.9); Red Blood Count 4.53 M/mm3 (4.6-6.2)
[2023-03-13 17:41] LABS: Vitamin D,25 Hydroxy 66.6 ng/mL
[2023-03-13 17:54] LABS: ALB/GLOB Ratio 0.9 RATIO (0.9-2.4); AST(SGOT) 26 U/L (15-37); Alanine Aminotransfer ALT/SGPT 28 U/L (16-61); Albumin, Serum 3.5 g/dL (3.2-5.0); Alkaline Phosphatase 78 U/L (45-117); Anion Gap 4 (5-15); BUN 28 mg/dL (7-18); BUN/Creat Ratio 28.9 RATIO (10-20); Calcium,Total 8.5 mg/dL (8.5-10.1); Chloride 107 mmol/L (98-107); Creatinine, Serum 0.97 mg/dL (0.70-1.30); EST Glomerular Filtration Rate 81 mL/min (>60); Est Glom Filt Rate - Afr Amer 98 mL/min (>60); Globulin 3.7 g/dL (2.2-4.2); Glucose 96 mg/dL (74-106); Potassium 4.3 mmol/L (3.5-5.1); Protein, Total 7.2 g/dL (6.4-8.2); Sodium Level 137 mmol/L (136-145)
== END | disposition home or self-care (01) ==
PROVIDERS: PCP Family Medicine Geriatric Medicine; Visit Provider Family Medicine Geriatric Medicine
DX: R53.83 Other fatigue (principal); E55.9 Vitamin D deficiency, unspecified
CPT/HCPCS: 36415; 80053; 82306; 84443; 85025

== ENCOUNTER → 2023-09-14 | Outpatient (CLI) | payer MEDICARE, OTHER, SELFPAY ==
[2023-09-14 10:06] LABS: Absolute Lymphocyte Count 1.22 X10^3/uL (0.83-4.51); Absolute Neutrophil Count 2.1 X10^3/uL (2.0-7.7); Basophil# 0.04 X10^3/uL; Eosinophils% 2.5 % (0-5); Hematocrit 46.3 % (40-54); Hemoglobin 15.2 g/dL (13.0-16.5); Lymphocyte # 1.22 X10^3/ul (0.83-4.51); Lymphocyte % 29.9 % (19-41); Mean Corp Hgb Conc 32.8 g/dL (32-36); Mean Corpuscular Volume 97.5 fL (80-94); Mean Platelet Vol. 11.8 fl (6.2-12.0); Monocyte% 14.7 % (0-10); NRBC Flagged by Analyzer 0 % (0-5); Neutrophil # 2.11 X10^3/uL (2.7-7.7); Neutrophil % 51.7 % (47-70); Platelet Count 164 K/mm3 (150-450); RBC Distribution Width CV 13.9 % (11.6-14.6); RBC Distribution Width SD 50.6 fl (35.1-43.9); Red Blood Count 4.75 M/mm3 (4.6-6.2); White Blood Count 4.1 K/mm3 (4.4-11.0)
[2023-09-14 10:28] LABS: Vitamin D,25 Hydroxy 54.8 ng/mL
[2023-09-14 10:41] LABS: ALB/GLOB Ratio 0.9 RATIO (0.9-2.4); AST(SGOT) 21 U/L (15-37); Alanine Aminotransfer ALT/SGPT 25 U/L (16-61); Albumin, Serum 3.6 g/dL (3.2-5.0); Alkaline Phosphatase 74 U/L (45-117); Anion Gap 3 (5-15); BUN 26 mg/dL (7-18); BUN/Creat Ratio 28.4 RATIO (10-20); Calcium,Total 9.4 mg/dL (8.5-10.1); Chloride 108 mmol/L (98-107); Creatinine, Serum 0.92 mg/dL (0.70-1.30); EST Glomerular Filtration Rate 86 mL/min (>60); Est Glom Filt Rate - Afr Amer 104 mL/min (>60); Globulin 3.8 g/dL (2.2-4.2); Glucose 100 mg/dL (74-106); Potassium 4.1 mmol/L (3.5-5.1); Protein, Total 7.4 g/dL (6.4-8.2); Sodium Level 139 mmol/L (136-145)
== END | disposition home or self-care (01) ==
LOC: POLAB3 09:11
PROVIDERS: PCP Family Medicine Geriatric Medicine; Visit Provider Family Medicine Geriatric Medicine
DX: E55.9 Vitamin D deficiency, unspecified (principal); R53.83 Other fatigue
CPT/HCPCS: 36415; 80053; 82306; 84443; 85025

== ENCOUNTER → 2024-03-17 | Outpatient (CLI) | payer MEDICARE, OTHER, SELFPAY ==
[2024-03-17 10:31] LABS: Absolute Lymphocyte Count 1.28 X10^3/uL (0.83-4.51); Absolute Neutrophil Count 2.7 X10^3/uL (2.0-7.7); Basophil# 0.04 X10^3/uL; Basophil% 0.8 % (0-1); Eosinophil# 0.07 X10^3/uL; Eosinophils% 1.5 % (0-5); Hematocrit 45.2 % (40-54); Hemoglobin 15.1 g/dL (13.0-16.5); Lymphocyte # 1.28 X10^3/ul (0.83-4.51); Lymphocyte % 26.8 % (19-41); Mean Corp Hgb Conc 33.4 g/dL (32-36); Mean Corpuscular Hgb 32.3 pg (27.0-32.0); Mean Corpuscular Volume 96.6 fL (80-94); Mean Platelet Vol. 11.8 fl (6.2-12.0); Monocyte# 0.65 X10^3/uL; Monocyte% 13.6 % (0-10); NRBC Flagged by Analyzer 0 % (0-5); Neutrophil # 2.72 X10^3/uL (2.7-7.7); Neutrophil % 56.9 % (47-70); Platelet Count 166 K/mm3 (150-450); RBC Distribution Width SD 49.6 fl (35.1-43.9); Red Blood Count 4.68 M/mm3 (4.6-6.2); White Blood Count 4.8 K/mm3 (4.4-11.0)
[2024-03-17 11:00] LABS: Vitamin D,25 Hydroxy 54.9 ng/mL
[2024-03-17 11:04] LABS: ALB/GLOB Ratio 0.9 RATIO (0.9-2.4); AST(SGOT) 24 U/L (15-37); Alanine Aminotransfer ALT/SGPT 36 U/L (16-61); Albumin, Serum 3.5 g/dL (3.2-5.0); Alkaline Phosphatase 77 U/L (45-117); Anion Gap 2 (5-15); BUN 21 mg/dL (7-18); BUN/Creat Ratio 22.3 RATIO (10-20); Calcium,Total 9.2 mg/dL (8.5-10.1); Chloride 108 mmol/L (98-107); Creatinine, Serum 0.94 mg/dL (0.70-1.30); EST Glomerular Filtration Rate 84 mL/min (>60); Est Glom Filt Rate - Afr Amer 101 mL/min (>60); Globulin 3.9 g/dL (2.2-4.2); Glucose 107 mg/dL (74-106); Potassium 4.3 mmol/L (3.5-5.1); Protein, Total 7.4 g/dL (6.4-8.2); Sodium Level 139 mmol/L (136-145); Thyroid Stim Hormone (TSH) 0.87 uIU/mL (0.358-3.74)
== END | disposition home or self-care (01) ==
LOC: POLAB3 08:51
PROVIDERS: PCP Family Medicine Geriatric Medicine; Visit Provider Family Medicine Geriatric Medicine
DX: R53.83 Other fatigue (principal); E55.9 Vitamin D deficiency, unspecified
CPT/HCPCS: 36415; 80053; 82306; 84443; 85025

== ENCOUNTER → 2024-09-12 | Outpatient (CLI) | payer MEDICARE, BC, SELFPAY ==
[2024-09-12 09:25] LABS: Absolute Lymphocyte Count 1.17 X10^3/uL (0.83-4.51); Basophil# 0.06 X10^3/uL; Basophil% 1.2 % (0-1); Eosinophil# 0.05 X10^3/uL; Hematocrit 45.9 % (40-54); Hemoglobin 15.3 g/dL (13.0-16.5); Lymphocyte # 1.17 X10^3/ul (0.83-4.51); Lymphocyte % 23.8 % (19-41); Mean Corp Hgb Conc 33.3 g/dL (32-36); Mean Corpuscular Hgb 32.1 pg (27.0-32.0); Mean Corpuscular Volume 96.2 fL (80-94); Mean Platelet Vol. 11.2 fl (6.2-12.0); Monocyte# 0.66 X10^3/uL; Monocyte% 13.4 % (0-10); NRBC Flagged by Analyzer 0 % (0-5); Neutrophil # 2.95 X10^3/uL (2.7-7.7); Neutrophil % 60.2 % (47-70); Platelet Count 176 K/mm3 (150-450); RBC Distribution Width CV 13.9 % (11.6-14.6); RBC Distribution Width SD 49.4 fl (35.1-43.9); Red Blood Count 4.77 M/mm3 (4.6-6.2); White Blood Count 4.9 K/mm3 (4.4-11.0)
[2024-09-12 09:58] LABS: Vitamin D,25 Hydroxy 63.8 ng/mL
[2024-09-12 10:04] LABS: ALB/GLOB Ratio 0.9 RATIO (0.9-2.4); AST(SGOT) 17 U/L (15-37); Alanine Aminotransfer ALT/SGPT 21 U/L (16-61); Albumin, Serum 3.7 g/dL (3.2-5.0); Alkaline Phosphatase 74 U/L (45-117); Anion Gap 5 (5-15); BUN 27 mg/dL (7-18); BUN/Creat Ratio 26.5 RATIO (10-20); Calcium,Total 9.3 mg/dL (8.5-10.1); Chloride 107 mmol/L (98-107); Creatinine, Serum 1.02 mg/dL (0.70-1.30); EST Glomerular Filtration Rate 76 mL/min (>60); Est Glom Filt Rate - Afr Amer 92 mL/min (>60); Globulin 4.1 g/dL (2.2-4.2); Glucose 103 mg/dL (74-106); Potassium 4.1 mmol/L (3.5-5.1); Protein, Total 7.8 g/dL (6.4-8.2); Sodium Level 140 mmol/L (136-145); Thyroid Stim Hormone (TSH) 0.956 uIU/mL (0.358-3.740)
== END | disposition home or self-care (01) ==
PROVIDERS: PCP Family Medicine Geriatric Medicine; Visit Provider Family Medicine Geriatric Medicine
DX: R53.83 Other fatigue (principal); E55.9 Vitamin D deficiency, unspecified
CPT/HCPCS: 36415; 80053; 82306; 84443; 85025

== ENCOUNTER → 2025-03-20 | Outpatient (CLI) | payer BC, MEDICARE, SELFPAY ==
[2025-03-20 09:15] LABS: Hematocrit 45.3 % (40-54); Hemoglobin 15.0 g/dL (13.0-16.5); Immature Granulocytes Count 0.010 X10^3/uL (0.0-0.0); Mean Corp Hgb Conc 33.1 g/dL (32-36); Mean Corpuscular Volume 98.3 fL (80-94); Mean Platelet Vol. 11.2 fl (6.2-12.0); NRBC Flagged by Analyzer 0 % (0-5); Platelet Count 167 K/mm3 (150-450); RBC Distribution Width CV 13.5 % (11.6-14.6); RBC Distribution Width SD 49.1 fl (35.1-43.9); Red Blood Count 4.61 M/mm3 (4.6-6.2); White Blood Count 5.5 K/mm3 (4.4-11.0)
[2025-03-20 10:06] LABS: AST(SGOT) 27 U/L (<=37); Alanine Aminotransfer ALT/SGPT 20 U/L (<=46); Albumin, Serum 4.1 g/dL (3.4-4.8); Alkaline Phosphatase 83 U/L (40-129); Anion Gap 9 (5-15); BUN 22 mg/dL (4-19); BUN/Creat Ratio 23.0 RATIO (10-20); Calcium,Total 9.2 mg/dL (7.6-11.0); Carbon Dioxide 24.7 mmol/L (21.0-32.0); Chloride 106 mmol/L (98-108); Globulin 3.0 g/dL (2.2-4.2); Glucose 104 mg/dL (70-99); Potassium 4.5 mmol/L (3.3-5.1); Vitamin D,25 Hydroxy 50.7 ng/mL (30-100)
[2025-03-20 17:03] LABS: Xtra Tube Kwok EXTRA TUBE
== END | disposition home or self-care (01) ==
LOC: POLAB3 09:01
PROVIDERS: PCP Family Medicine Geriatric Medicine; Visit Provider Family Medicine Geriatric Medicine
DX: E55.9 Vitamin D deficiency, unspecified (principal); R53.83 Other fatigue
CPT/HCPCS: 36415; 80053; 82306; 84443; 85025

== ENCOUNTER → 2025-04-28 | Outpatient (CLI) | payer MEDICARE, SELFPAY ==
[2025-04-28 14:31] LABS: Mucous, Urine 0 SEEN /hpf (<or=2+)
[2025-04-28 14:53] LABS: Hematocrit 42.4 % (40-54); Hemoglobin 14.5 g/dL (13.0-16.5); Immature Granulocytes Count 0.020 X10^3/uL (0.0-0.0); Mean Corp Hgb Conc 34.2 g/dL (32-36); Mean Corpuscular Volume 96.6 fL (80-94); Mean Platelet Vol. 11.1 fl (6.2-12.0); NRBC Flagged by Analyzer 0 % (0-5); Platelet Count 151 K/mm3 (150-450); RBC Distribution Width CV 13.7 % (11.6-14.6); RBC Distribution Width SD 49.1 fl (35.1-43.9); Red Blood Count 4.39 M/mm3 (4.6-6.2); White Blood Count 9.2 K/mm3 (4.4-11.0)
[2025-04-28 16:38] LABS: Color, Urine Yellow (Yellow); Glucose, Dipstick Normal (Normal); Ketone-Dipstick 50 mg/dl (Negative); Leukocyte Esterase-Dipstick Negative /ul (Negative); Nitrite-Dipstick Negative (Negative); Occult Blood-Urine 25 /ul (Negative); Protein-Dipstick 15 mg/dl (Negative); Specific Gravity, Urine 1.025 (1.002-1.030); Urine Bilirubin Dipstick Negative (Negative)
--- NOTE | 2025-04-28 16:40 | CT_ITS ---
PROCEDURE: ABDOMEN/PELVIS WITH CONTRAST 04/28/2025 REASON FOR EXAM: ABDOMINAL PAIN TECHNIQUE: Procedure Code: [id number] Modality: CT Procedure: ABDOMEN/PELVIS WITH CONTRAST Coronal and Sagittal reconstruction series were provided. CONTRAST: 100 mL of Isovue 370 One or more dose reduction techniques were used (e.g., Automated exposure control, adjustment of the mA and/or kV according to patient size, use of iterative reconstruction technique. RADIATION DOSE SUMMARY: DLP: 666 mGycm COMPARISON: none FINDINGS: Limited sections of the lung bases demonstrate no focal pulmonary mass or consolidations. The liver, spleen, pancreas, and both adrenal glands demonstrate no acute findings. The gallbladder is unremarkable. The stomach is unremarkable. The small bowel loops are not dilated. The appendix is not clearly identified, although there are no secondary signs of appendicitis. No colonic obstruction. Scattered colonic diverticulosis without acute diverticulitis. There is no free air or significant free fluid. 3 mm obstructive stone at the proximal right ureter with associated mild hydroureteronephrosis and perinephric stranding. Nonobstructive tiny stone within the left kidney. Mildly thickened urinary bladder wall which may reflect cystitis vs nondistention; consider correlation with urinalysis. The pelvic structures are intact. There is no solid pelvic mass. No significant lymphadenopathy. The aorta and IVC demonstrate no acute findings. Mild atherosclerosis of the abdominal vasculature. Visualized osseous structures demonstrate no acute abnormality. CT/Abdomen/Pelvis WITH Contrast IMPRESSION: 3 mm obstructive stone at the proximal right ureter with associated mild hydrou reteronephrosis and perinephric stranding. Mildly thickened urinary bladder wall which may reflect cystitis vs nondistenti on; consider correlation with urinalysis. Reading [id number]
[2025-04-28 17:49] LABS: AST(SGOT) 29 U/L (<=37); Alanine Aminotransfer ALT/SGPT 27 U/L (<=46); Albumin, Serum 4.2 g/dL (3.4-4.8); Alkaline Phosphatase 79 U/L (40-129); Anion Gap 12 (5-15); BUN 36 mg/dL (4-19); BUN/Creat Ratio 23.3 RATIO (10-20); Calcium,Total 9.0 mg/dL (7.6-11.0); Carbon Dioxide 24.2 mmol/L (21.0-32.0); Chloride 105 mmol/L (98-108); Globulin 3.0 g/dL (2.2-4.2); Glucose 98 mg/dL (70-99); Potassium 4.2 mmol/L (3.3-5.1)
[2025-04-28 21:23] LABS: Red Blood Cells-Urine 0-5 SEEN /hpf (0-5); Squamous Epithelial Cells - UA 0-5 SEEN /hpf (0-5)
== END | disposition home or self-care (01) ==
PROVIDERS: PCP Family Medicine Geriatric Medicine; Visit Provider Family Medicine Geriatric Medicine
DX: N20.0 Calculus of kidney (principal); R53.83 Other fatigue; K80.50 Calculus of bile duct without cholangitis or cholecystitis without obstruction; K21.9 Gastro-esophageal reflux disease without esophagitis; R10.9 Unspecified abdominal pain
CPT/HCPCS: 36415; 74177; 80053; 81001; 85025

== ENCOUNTER 2025-05-20 05:13 | Day surgery (SDC) | payer MEDICARE, SELFPAY ==
--- NOTE | 2025-05-06 15:55 | PAT.ANESEVAL ---
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 When Was Last Pacemaker Check QUESTION #4 FULL TEXT: You/Your Family Experience fever (hyperthermia) with Anesthesia Last Oral Intake Last Oral intake: Last Oral Intake NPO since Meds taken in AM with sips of water? Meds patient instructed to take am of surgery PONV PONV - medical equipment repairer: PONV - medical equipment repairer Female No 05/06/25 15:08 HX of Motion Sickness Yes 05/06/25 15:08 HX of N/V After Surgery No 05/06/25 15:08 Non-Smoker Yes 05/06/25 15:08 Duration of Surgery greater Yes 05/06/25 15:08 than 60 minutes Number of Risk Factors 3 05/06/25 15:08 PONV Score Moderate Risk 05/06/25 15:08 Height & Weight Height & Weight: Anesthesia: Height & Weight Height 6 ft 2 in 03/16/21 06:49 Respiratory Assessment Respiratory Assessment - medical equipment repairer: Respiratory Tract Infection Hx - medical equipment repairer Hx Respiratory Tract Infection No 05/06/25 15:08 STOP Sleep Apnea STOP Sleep Apnea - medical equipment repairer: STOP Sleep Apnea - medical equipment repairer Hx Hypertension No 05/06/25 15:08 Hx Sleep Apnea No 05/06/25 15:08 CPAP No 03/16/21 08:59 BIPAP Do you snore loudly (louder No 05/06/25 15:08 than talking or can be heard Do you often feel tired/ No 05/06/25 15:08 fatigued/ sleepy during daytime? Has anyone observed you stop No 05/06/25 15:08 breathing during sleep? STOP Results Negative 05/06/25 15:08 QUESTION #5 FULL TEXT : Do you snore loudly (louder than talking or can be heard through closed doors)? 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 Specify any problems Hx of Preganancy in last 3 N/A 05/06/25 15:08 Months Nurse Filling Out Transfusion DSCHRIBER 05/06/25 15:08 & Questions: Date: 05/06/25 05/06/25 15:08 Time: 15:09 05/06/25 15:08 Patient unable to answer at this time (ie. confused, unrespo /Reproduction History /Reproductive History - medical equipment repairer: /Reproductive Hx- medical equipment repairer Hx Now No 05/06/25 15:08 Gestational Age (in weeks): EDC: Hx Hx Para Hx Section SAB No 05/06/25 15:08 [facility] Medical History (Updated 05/06/25 @ 15:14 by Tiara Madrid) Wears contact lenses Alcohol use Non-smoker History of stress test High blood cholesterol GERD (gastroesophageal reflux disease) Graves disease Home Medications ?Medication ?Instructions ?Recorded ?Last Taken ?Type famotidine 40 mg tablet 40 mg PO DAILY 02/22/21 03/16/21 History bkmxgcmz-ow-gmvcp 300 mcg-K 60 1 tab PO DAILY 02/22/21 Unknown History mcg-lycop 600 mcg-lutein 300 mcg tablet (Centrum Silver Ultra Men's) pravastatin 40 mg tablet 40 mg PO QHS 02/22/21 Unknown History vit 1 cap PO BID 02/22/21 Unknown History C,E,zinc,Cm-yudzt-4-lutein-zeaxanthin 250 mg-2.5 mg-0.5 mg capsule NATURAL JOINT 1 cap PO DAILY 05/06/25 Unknown History tamsulosin 0.4 mg capsule 0.4 mg PO QHS 05/06/25 Unknown History Allergy/AdvReac Type Severity Reaction Status Date / Time No Known Allergies Allergy Verified 05/06/25 15:05 Family History (Updated 02/22/21 @ 14:38 by Quyen Richards) Brother Diabetes Thyroid disorder Father Heart disease Myocardial infarction Mother Breast cancer Daughter Breast cancer Surgical History (Updated 05/06/25 @ 15:14 by Tiara Madrid) Hx of bilateral inguinal hernia repair History of cardiac catheterization History of colonoscopy History of tonsillectomy and adenoidectomy Social History (Updated 02/22/21 @ 14:39 by Quyen Richards) Smoking Status: Never smoker second hand exposure: No alcohol intake: current alcohol intake frequency: a few times a month substance use type: does not use what type of physical activity do you participate in: none frequency: does not exercise Audit: Pertinent Findings Pertinent Findings EKG Perinent findings: EKG 03/11/2021. Sinus rhythm with occasional premature ventricular complexes. Otherwise normal ECG Recommendation Anesthesia Recommendation Anesthesia recommendation: OPTIMIZED for anesthesia
[2025-05-20] VITALS (9 sets, daily range): BP systolic 91–148; BP diastolic 60–95; PULSE 65–79; RESP 16–18; TEMP 36.4–36.9; O2SAT 95–100
[2025-05-20] MEDS: Lactated Ringers 1,000 ML 15 ML IV (06:01)
--- NOTE | 2025-05-20 06:11 | PRE.ANES_ITS ---
ASA Classification* ASA Classification ASA Classification: 2 Assessment & Plan Anesthesia* Anesthesia Assessment Anesthesia Assessment: Discussed sedation and/or anesthesia options, risks, benefits, and alternatives with patient/parents/legal guardian/POA. Questions invited. The patient/parents/legal guardian/POA seems to understand and agrees to proceed with anesthesia plan. Reviewed the physical assessment, medical history, allergy history and patient home medications list prior to surgery/procedure/anesthetic and documented any changes. Performed airway and anesthesia risk assessments. Anesthesia Type Anesthesia Type: General History Source History Obtained from:: Patient and Chart Anesthesia Focused Assessment* Temperature: 98.4 F Pulse Rate: 79 Blood Pressure: 148/95 Respiratory Rate: 16 Pulse Ox: 100 Oxygen Delivery Method: Room Air Airway Assessment Mouth opens: >3 cm Mallampati Score: II Neck Range of motion (ROM): Full ROM Comment: Short thyromental distance Labs Anesthesia Preop lab: CBC WBC, (4.4-11.0) 9.2 K/mm3 04/28/25, 14:30 RBC, (4.6-6.2) 4.39 M/mm3 L 04/28/25, 14:30 Hgb, (13.0-16.5) 14.5 g/dL 04/28/25, 14:30 Hct, (40-54) 42.4 % 04/28/25, 14:30 Plt Count, (150-450) 151 K/mm3 04/28/25, 14:30 CHEMISTRY Potassium, (3.3-5.1) 4.2 mmol/L 04/28/25, 14:30 Sodium, (133-145) 141 mmol/L 04/28/25, 14:30 BUN, (4-19) 36 mg/dL H 04/28/25, 14:30 Creatinine, (0.70-1.20) 1.53 mg/dL H 04/28/25, 14:30 Glucose, (70-99) 98 mg/dL 04/28/25, 14:30 TSH, (0.300-4.200) 1.000 uIU/mL 03/20/25, 09:02 COAG Pre-Assessment Diagnosis/Proposed Procedure Planned Operative Procedure(s): CYSTO URETEROSCOPY LASER STENT RIGHT Anesthesia History 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 When Was Last Pacemaker Check QUESTION #4 FULL TEXT: You/Your Family Experience fever (hyperthermia) with Anesthesia Last Oral Intake Last Oral intake: Last Oral Intake NPO since 22:00 05/20/25 05:52 Meds taken in AM with sips of Yes 05/20/25 05:52 water? Meds patient instructed to pepcid 0400 05/20/25 05:52 take am of surgery PONV PONV - coffee sommelier: PONV - coffee sommelier Female No 05/06/25 15:08 HX of Motion Sickness Yes 05/06/25 15:08 HX of N/V After Surgery No 05/06/25 15:08 Non-Smoker Yes 05/06/25 15:08 Duration of Surgery greater Yes 05/06/25 15:08 than 60 minutes Number of Risk Factors 3 05/06/25 15:08 PONV Score Moderate Risk 05/06/25 15:08 Height & Weight Height & Weight: Anesthesia: Height & Weight Height 6 ft 2 in 05/20/25 05:52 Weight: 71 kg 05/20/25 05:52 Body Mass Index (BMI) 20.0 05/20/25 05:52 Respiratory Assessment Respiratory Assessment - coffee sommelier: Respiratory Tract Infection Hx - coffee sommelier Hx Respiratory Tract Infection No 05/06/25 15:08 STOP Sleep Apnea STOP Sleep Apnea - coffee sommelier: STOP Sleep Apnea - coffee sommelier Hx Hypertension No 05/06/25 15:08 Hx Sleep Apnea No 05/06/25 15:08 CPAP No 03/16/21 08:59 BIPAP Do you snore loudly (louder No 05/06/25 15:08 than talking or can be heard Do you often feel tired/ No 05/06/25 15:08 fatigued/ sleepy during daytime? Has anyone observed you stop No 05/06/25 15:08 breathing during sleep? STOP Results Negative 05/06/25 15:08 QUESTION #5 FULL TEXT : Do you snore loudly (louder than talking or can be heard through closed doors)? 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 Specify any problems Hx of Preganancy in last 3 N/A 05/06/25 15:08 Months Nurse Filling Out Transfusion [email or web address] 05/06/25 15:08 & Questions: Date: 05/06/25 05/06/25 15:08 Time: 15:09 05/06/25 15:08 Patient unable to answer at this time (ie. confused, unrespo /Reproduction History /Reproductive History - coffee sommelier: /Reproductive Hx- coffee sommelier Hx Now No 05/06/25 15:08 Gestational Age (in weeks): EDC: Hx Hx Para Hx Section SAB No 05/06/25 15:08 Active Medications Active Medications: Current Medications Generic Name Dose Route Start Last Admin Trade Name Freq PRN Reason Stop Dose Admin Cefazolin Sodium 2 gm/ Sodium 110 mls @ 200 mls/hr 05/20/25 07:30 Chloride IV 05/20/25 08:02 INTRAOP ONE Lactated Ringer's 1,000 mls @ 15 mls/hr 05/20/25 06:00 05/20/25 06:01 IV 15 mls/hr .Q48H STEVE Administration PFSH Medical History Wears contact lenses Alcohol use Non-smoker History of stress test High blood cholesterol GERD (gastroesophageal reflux disease) Graves disease Home Medications ?Medication ?Instructions ?Recorded ?Last Taken ?Type famotidine 40 mg tablet 40 mg PO DAILY 02/22/2109/13 04:00 History davkizsh-sp-andmo 300 mcg-K 60 1 tab PO DAILY 02/22/21 05/19/25 History mcg-lycop 600 mcg-lutein 300 mcg tablet (Centrum Silver Ultra Men's) pravastatin 40 mg tablet 40 mg PO QHS 02/22/21 History vit 1 cap PO BID 02/22/21 History C,E,zinc,Oz-cikyw-6-lutein-zeaxanthin 250 mg-2.5 mg-0.5 mg capsule NATURAL JOINT 1 cap PO DAILY 05/06/2504/22 History tamsulosin 0.4 mg capsule 0.4 mg PO QHS 05/06/2505/19 History Allergy/AdvReac Type Severity Reaction Status Date / Time No Known Allergies Allergy Verified 05/06/25 15:05 Family History Brother Diabetes Thyroid disorder Father Heart disease Myocardial infarction Mother Breast cancer Daughter Breast cancer Surgical History Hx of bilateral inguinal hernia repair History of cardiac catheterization History of colonoscopy History of tonsillectomy and adenoidectomy Social History Smoking Status: Never smoker second hand exposure: No alcohol intake: current alcohol intake frequency: a few times a month substance use type: does not use what type of physical activity do you participate in: none frequency: does not exercise Addt'l Information Additional Findings: > 4 METs Review of Systems (Anesthesia) ROS Narrative System reviewed and no additional complaints, except as documented. Physical Exam Const alert and oriented x3 Neck full ROM Resp normal respiratory effort and normal air movement Cardio regular rate and regular rhythm Back/Spine normal ROM Extremity full ROM Neuro oriented x3 and moves all extremities
--- NOTE | 2025-05-20 07:25 | DCINST_ITS ---
Discharge Instructions DC O2, CPAP, BIPAP needs Home O2 Discharge instructions: No Dressing / Incision Discharge Activity: Return to Normal Activity and May Not Drive (while taking narcotic pain medications.) Dressing / Incision Call your doctor if you observe: Fever of 101 or Higher Follow Up Care Please Follow Up With: Mendez Yun MD When: Call [phone] for an appointment Test Results: Test results from this visit will be discussed in further detail at your follow- up appointment, if applicable. Discharge Plan Admission Primary Reason for Your Visit: kidney stone Attending Provider: Mendez Yun Primary Care Provider: Endy Sandy Chi Instructions Print Language: Albanian Discharge Orders/Prescriptions Prescriptions: New ciprofloxacin HCl [Cipro] 500 mg tablet 500 mg PO BID Qty: 10 0RF phenazopyridine [Pyridium] 100 mg tablet 100 mg PO TID Qty: 14 0RF oxycodone 5 mg tablet 5 mg PO Q6H PRN (Reason: pain) 7 Days Qty: 14 0RF No Action famotidine 40 mg tablet 40 mg PO DAILY Patient Comments: TAKE 1 TABLET ORALLY ONCE PER DAY FOR 90 DAYS pravastatin 40 mg tablet 40 mg PO QHS Patient Comments: TAKE 1 TABLET BY MOUTH EVERYDAY AT BEDTIME vit C,E,Zn,Ox-bfzaj4-oou-zeax 250-2.5-0.5 mg capsule 1 cap PO BID Centrum Silver Ultra Men's 300-600-300 mcg tablet 1 tab PO DAILY NATURAL JOINT 1 cap PO DAILY tamsulosin 0.4 mg capsule 0.4 mg PO QHS Referrals / Follow Up: Mendez Yun MD [Med Staff - Active Staff, Urology] Endy Sandy Chi, MD [Primary Care Provider, Geriatrics] Disposition Disposition (needs filled in before D/C Order can be placed): Home, Self Care
[2025-05-20] MEDS: fentaNYL 100 MCG/2 ML Ampul IV (07:30)
[2025-05-20] MEDS: Lidocaine 1% (5 ml sdv) 5 ML Vial IV (07:30)
[2025-05-20] MEDS: Midazolam 2 MG/2 ML Syringe IV (07:32)
[2025-05-20] MEDS: Cefazolin 1 GM/5 ML Vial 2 GM IV (07:32)
--- NOTE | 2025-05-20 07:51 | PCM.OPRPT ---
Operative Report (Standard) Operative Information Date of Procedure: 05/20/25 Pre-Operative Diagnosis: Obstructing right ureteral calculus Post-Operative Diagnosis: The same Surgery/Procedure Performed: Cystoscopy, balloon dilation of the right ureter, right ureteroscopy, right stent placement specimen technician: No Type of Anesthesia: General RN Documented Start/Stop Times: Operation Date: 05/20/25 07:30 Case Time Into Pre-Op 05/20/25 05:35 Out of Pre-Op 05/20/25 07:22 Anesthesia Start 05/20/25 07:25 Into Room 05/20/25 07:25 Procedure Start 05/20/25 07:37 Procedure Start Time: 07:37 Procedure Stop Time: 07:51 Select all DRAINS/GRAFTS/IMPLANTS that apply: Drains Drain details: Stent on the right side Estimated Blood Loss: None Specimen collected: No Description of surgery: 74-year-old male who has a small stone 4.5 mm in size but has not been able to pass it so he presents for ureteroscopy laser lithotripsy and stent placement taken back to the operating room after smooth induction of anesthesia he was placed in dorsolithotomy position penis and testicles were prepped and draped in usual sterile fashion went into the bladder with a 21 Taiwanese rigid cystourethroscope entire length of the urethra was normal the prostate was normal inside the bladder the bladder was normal I cannulated the right ureter orifice with a Glidewire and immediately got a flux of purulent infected urine from the right side I could feel the stone when I went past it with the wire I advanced the balloon dilator and tried the balloon dilate the ureter this was successful but then tried to go into the ureter where the ureteroscope was able to get the ureter very short ways but then encountered pretty tight ureter could not get through safely so at this point given the fact that the ureter was too tight and swollen and also had a lot of an infection and pus coming out of the ureter decided distally leave a stent that a stretch out for 2 weeks and bring them back in 2 weeks so over the wire I placed a stent of 6 Taiwanese by 26 cm stent once the stent was in good position pulled the wire and the stent coiled coiled in the bladder and kidney in good position and I drained the bladder patient acetic reversed and my office will call in for instructions for follow-up in 2 weeks for ureteroscopy and laser lithotripsy once his stents dilated and the infections cleared out. Surgical Findings: Unable to reach as stone ureter extremely tight also had pus coming from the ureter stent placed Complications Complications: No Admit VTE Documentation VTE Present on Admission: No VTE Mechan Device Prophylaxis: SCD's VTE Pharm Prophylaxis ordered?: No
--- NOTE | 2025-05-20 08:01 | PCM.POST.ANE ---
Anesthesia: Postop Eval I Current Vital Signs Temperature: 97.6 F Pulse Rate: 66 Blood Pressure: 95/61 Respiratory Rate: 16 Pulse Ox: 95 Oxygen Delivery Method: Room Air Assessment Airway patent: Yes Spontaneous unlabored respirations: Yes Mental status: Asleep nausea: No Vomiting: No Anesthesia Complication: No Fluid Hydration Crystalloid volume administer (ml): 800 Total IV fluid infused: 800 Progress Note Anesthesia document: Postop Eval 1 completed: Yes
--- NOTE | 2025-05-20 08:31 | POSTOPAN2_ITS ---
Anesthesia Postop Eval I Sum Postop Eval Completion status Anesthesia document: Postop Eval 1 completed: Yes Anesthesia Postop Eval I Summary Anesthesia Postop Eval I Summary: Anesthesia Postop Eval I: Assessment Summary Airway patent Yes 05/20/25 08:02 [email or web address] Spontaneous unlabored Yes 05/20/25 08:02 [email or web address] [email or web address] respirations Mental status Asleep 05/20/25 08:02 [email or web address] [email or web address] nausea No 05/20/25 08:02 [email or web address] [email or web address] Vomiting No 05/20/25 08:02 [email or web address] Anesthesia Postop Eval I: Fluid Summary Crystalloid volume administer 800 05/20/25 08:02 SHAPE [email or web address] (ml) Colloids volume administered ( ml) Blood Product volume administered (ml) Total IV fluid infused 800 05/20/25 08:03 [email or web address] [email or web address] Anesthesia Postop Eval I: Summary Notes Anesthesia Complication No 05/20/25 08:02 [email or web address] [email or web address] Anesthesia Complication Comment: Post-operative progress note Anesthesia: Postop Eval II Evaluation Mental status: Awake and Calm Pain Level: 0 nausea: No Vomiting: No Complications Anesthesia Complication: No
--- NOTE | 2025-05-20 08:31 | PCM.POSTANE2 ---
Anesthesia Postop Eval I Sum Postop Eval Completion status Anesthesia document: Postop Eval 1 completed: Yes Anesthesia Postop Eval I Summary Anesthesia Postop Eval I Summary: Anesthesia Postop Eval I: Assessment Summary Airway patent Yes 05/20/25 08:02 [email or web address] Spontaneous unlabored Yes 05/20/25 08:02 [email or web address] respirations Mental status Asleep 05/20/25 08:02 [email or web address] nausea No 05/20/25 08:02 [email or web address] [email or web address] Vomiting No 05/20/25 08:02 [email or web address] Anesthesia Postop Eval I: Fluid Summary Crystalloid volume administer 800 05/20/25 08:02 [email or web address] (ml) Colloids volume administered ( ml) Blood Product volume administered (ml) Total IV fluid infused 800 05/20/25 08:03 [email or web address] Anesthesia Postop Eval I: Summary Notes Anesthesia Complication No 05/20/25 08:02 [email or web address] Anesthesia Complication Comment: Post-operative progress note Anesthesia: Postop Eval II Evaluation Mental status: Awake and Calm Pain Level: 0 nausea: No Vomiting: No Complications Anesthesia Complication: No
== END 2025-05-20 09:07 | disposition home or self-care (01) ==
LOC: SDC 05:19 → AC 05:19
PROVIDERS: PCP Family Medicine Geriatric Medicine; Referring Provider Urology; Visit Provider Urology
PROC: 0TJ98ZZ Inspection of Ureter, Via Natural or Artificial Opening Endoscopic (ICD-10-PCS; CPT 52352; principal; 2025-05-20 07:20)
DX: N20.1 Calculus of ureter (principal); K21.9 Gastro-esophageal reflux disease without esophagitis; E78.00 Pure hypercholesterolemia, unspecified; Z79.899 Other long term (current) drug therapy
CPT/HCPCS: 52332; 00910; C1769; C2617; J2405

== ENCOUNTER 2025-06-03 11:15 | Day surgery (SDC) | payer MEDICARE, SELFPAY ==
[2025-06-03] VITALS (9 sets, daily range): BP systolic 118–142; BP diastolic 75–90; PULSE 70–84; RESP 16–18; TEMP 36.3–37.2; O2SAT 97–100; BMI 20.3
[2025-06-03] MEDS: Lactated Ringers 1,000 ML 15 ML IV (12:24)
--- NOTE | 2025-06-03 12:59 | PCM.PRE.AN2 ---
ASA Classification* ASA Classification ASA Classification: 2 Assessment & Plan Anesthesia* Anesthesia Assessment Anesthesia Assessment: Discussed sedation and/or anesthesia options, risks, benefits, and alternatives with patient/parents/legal guardian/POA. Questions invited. The patient/parents/legal guardian/POA seems to understand and agrees to proceed with anesthesia plan. Reviewed the physical assessment, medical history, allergy history and patient home medications list prior to surgery/procedure/anesthetic and documented any changes. Performed airway and anesthesia risk assessments. Anesthesia Type Anesthesia Type: General History Source History Obtained from:: Patient and Chart Anesthesia Focused Assessment* Temperature: 98.9 F Pulse Rate: 84 Blood Pressure: 133/81 Respiratory Rate: 18 Pulse Ox: 98 Oxygen Delivery Method: Room Air Airway Assessment Mouth opens: >3 cm Mallampati Score: II Teeth Condition: Intact Neck Range of motion (ROM): Full ROM Labs Anesthesia Preop lab: CBC WBC, (4.4-11.0) 9.2 K/mm3 04/28/25, 14:30 RBC, (4.6-6.2) 4.39 M/mm3 L 04/28/25, 14:30 Hgb, (13.0-16.5) 14.5 g/dL 04/28/25, 14:30 Hct, (40-54) 42.4 % 04/28/25, 14:30 Plt Count, (150-450) 151 K/mm3 04/28/25, 14:30 CHEMISTRY Potassium, (3.3-5.1) 4.2 mmol/L 04/28/25, 14:30 Sodium, (133-145) 141 mmol/L 04/28/25, 14:30 BUN, (4-19) 36 mg/dL H 04/28/25, 14:30 Creatinine, (0.70-1.20) 1.53 mg/dL H 04/28/25, 14:30 Glucose, (70-99) 98 mg/dL 04/28/25, 14:30 TSH, (0.300-4.200) 1.000 uIU/mL 03/20/25, 09:02 COAG Pre-Assessment Diagnosis/Proposed Procedure Planned Operative Procedure(s): (R) Cysto,Ureteroscopy,Retro,Laser,Stent Anesthesia History 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 When Was Last Pacemaker Check QUESTION #4 FULL TEXT: You/Your Family Experience fever (hyperthermia) with Anesthesia Last Oral Intake Last Oral intake: Last Oral Intake NPO since 23:45 06/03/25 12:14 Meds taken in AM with sips of Yes 06/03/25 12:14 water? Meds patient instructed to famotidine 06/03/25 12:14 take am of surgery PONV PONV - artificial cherry maker: PONV - artificial cherry maker Female No 05/27/25 14:28 HX of Motion Sickness No 05/27/25 14:28 HX of N/V After Surgery No 05/27/25 14:28 Non-Smoker Yes 05/27/25 14:28 Duration of Surgery greater No 05/27/25 14:28 than 60 minutes Number of Risk Factors 1 05/27/25 14:28 PONV Score Low Risk 05/27/25 14:28 Height & Weight Height & Weight: Anesthesia: Height & Weight Height 6 ft 2 in 06/03/25 12:14 Weight: 72 kg 06/03/25 12:14 Body Mass Index (BMI) 20.3 06/03/25 12:14 Respiratory Assessment Respiratory Assessment - artificial cherry maker: Respiratory Tract Infection Hx - artificial cherry maker Hx Respiratory Tract Infection No 05/27/25 14:28 STOP Sleep Apnea STOP Sleep Apnea - artificial cherry maker: STOP Sleep Apnea - artificial cherry maker Hx Hypertension No 05/27/25 14:28 Hx Sleep Apnea No 05/27/25 14:28 CPAP No 05/27/25 14:28 BIPAP Do you snore loudly (louder No 05/27/25 14:28 than talking or can be heard Do you often feel tired/ No 05/27/25 14:28 fatigued/ sleepy during daytime? Has anyone observed you stop No 05/27/25 14:28 breathing during sleep? STOP Results Negative 05/27/25 14:28 QUESTION #5 FULL TEXT : Do you snore loudly (louder than talking or can be heard through closed doors)? 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 Specify any problems Hx of Preganancy in last 3 N/A 05/27/25 14:28 Months Nurse Filling Out Transfusion NBUCHER 05/27/25 14:28 & Questions: Date: 05/27/25 05/27/25 14:28 Time: 14:29 05/27/25 14:28 Patient unable to answer at this time (ie. confused, unrespo /Reproduction History /Reproductive History - artificial cherry maker: /Reproductive Hx- artificial cherry maker Hx Now No 05/27/25 14:28 Gestational Age (in weeks): EDC: Hx Hx Para Hx Section SAB No 05/27/25 14:28 Active Medications Active Medications: Current Medications Generic Name Dose Route Start Last Admin Trade Name Freq PRN Reason Stop Dose Admin Cefazolin Sodium 2 gm/ Sodium 110 mls @ 200 mls/hr 06/03/25 13:45 Chloride IV 06/03/25 14:17 INTRAOP ONE Lactated Ringer's 1,000 mls @ 15 mls/hr 06/03/25 11:45 06/03/25 12:24 IV 15 mls/hr .Q48H STEVE Administration PFSH Medical History History of kidney stones Wears contact lenses Alcohol use Non-smoker History of stress test High blood cholesterol GERD (gastroesophageal reflux disease) Graves disease Home Medications ?Medication ?Instructions ?Recorded ?Last Taken ?Type famotidine 40 mg tablet 40 mg PO DAILY 02/22/21 06/03/25 History yrjwpijw-jg-nltxq 300 mcg-K 60 1 tab PO DAILY 02/22/21 06/02/25 History mcg-lycop 600 mcg-lutein 300 mcg tablet (Centrum Silver Ultra Men's) pravastatin 40 mg tablet 40 mg PO QHS 02/22/21 06/02/25 History vit 1 cap PO BID 02/22/21 06/02/25 History C,E,zinc,Cv-bspbs-8-lutein-zeaxanthin 250 mg-2.5 mg-0.5 mg capsule NATURAL JOINT 1 cap PO DAILY 05/06/25 06/02/25 History tamsulosin 0.4 mg capsule 0.4 mg PO QHS 05/06/25 06/02/25 History phenazopyridine 100 mg tablet 100 mg PO TID #14 tabs 05/20/25 Unknown Rx (Pyridium) Allergy/AdvReac Type Severity Reaction Status Date / Time No Known Allergies Allergy Verified 06/03/25 12:11 Family History Brother Diabetes Thyroid disorder Father Heart disease Myocardial infarction Mother Breast cancer Daughter Breast cancer Surgical History History of cystoscopy Hx of bilateral inguinal hernia repair History of cardiac catheterization History of colonoscopy History of tonsillectomy and adenoidectomy Social History Smoking Status: Never smoker second hand exposure: No alcohol intake: current alcohol intake frequency: a few times a month substance use type: does not use what type of physical activity do you participate in: none frequency: does not exercise Review of Systems (Anesthesia) ROS Narrative System reviewed and no additional complaints, except as documented.
--- NOTE | 2025-06-03 14:28 | PCM.HP.STD ---
HPI - General General Date of Service: 06/03/25 Chief Complaint: Right kidney stone HPI Narrative PETRA GABRIEL, is a 74 M who presents to laser stones on the right side and he will need a stent after we laser the stones [facility] Medical History History of kidney stones Wears contact lenses Alcohol use Non-smoker History of stress test High blood cholesterol GERD (gastroesophageal reflux disease) Graves disease Home Medications ?Medication ?Instructions ?Recorded ?Last Taken ?Type famotidine 40 mg tablet 40 mg PO DAILY 02/22/21 06/03/25 History fxkirjhp-rh-olmte 300 mcg-K 60 1 tab PO DAILY 02/22/21 06/02/25 History mcg-lycop 600 mcg-lutein 300 mcg tablet (Centrum Silver Ultra Men's) pravastatin 40 mg tablet 40 mg PO QHS 02/22/21 06/02/25 History vit 1 cap PO BID 02/22/21 06/02/25 History C,E,zinc,Nm-flnxm-5-lutein-zeaxanthin 250 mg-2.5 mg-0.5 mg capsule NATURAL JOINT 1 cap PO DAILY 05/06/25 06/02/25 History tamsulosin 0.4 mg capsule 0.4 mg PO QHS 05/06/25 06/02/25 History phenazopyridine 100 mg tablet 100 mg PO TID #14 tabs 05/20/25 Unknown Rx (Pyridium) Allergy/AdvReac Type Severity Reaction Status Date / Time No Known Allergies Allergy Verified 06/03/25 12:11 Family History Brother Diabetes Thyroid disorder Father Heart disease Myocardial infarction Mother Breast cancer Daughter Breast cancer Surgical History History of cystoscopy Hx of bilateral inguinal hernia repair History of cardiac catheterization History of colonoscopy History of tonsillectomy and adenoidectomy Social History Smoking Status: Never smoker second hand exposure: No alcohol intake: current alcohol intake frequency: a few times a month substance use type: does not use what type of physical activity do you participate in: none frequency: does not exercise Vital Signs Vital Signs Vital Signs: 06/03/25 12:14 06/03/25 12:14 06/03/25 13:00 Temperature 98.9 F 98.9 F Temperature Source Temporal Pulse Rate 84 84 Respiratory Rate 18 18 Respiratory Pattern Normal Blood Pressure 133/81 H 133/81 H Blood Pressure Mean 98 Blood Pressure Source Monitor Blood Pressure Position Semi-Fowlers Blood Pressure Location Left Arm Pulse Ox 98 98 Oxygen Delivery Method Room Air Room Air Weight Weight: 72 kg Body Mass Index (BMI) 20.3
[2025-06-03] MEDS: Lactated Ringers 500 ML IV (14:51)
[2025-06-03] MEDS: Cefazolin 1 GM/5 ML Vial 2 GM IV (14:54)
[2025-06-03] MEDS: fentaNYL 100 MCG/2 ML Ampul 50 MCG IV (14:57)
[2025-06-03] MEDS: Lidocaine 1% (5 ml sdv) 5 ML Vial IV (14:57)
--- NOTE | 2025-06-03 15:19 | DCINST_ITS ---
Discharge Instructions DC O2, CPAP, BIPAP needs Home O2 Discharge instructions: No Dressing / Incision Discharge Activity: Return to Normal Activity and May Not Drive (while taking narcotic pain medications.) Dressing / Incision Call your doctor if you observe: Fever of 101 or Higher Follow Up Care Please Follow Up With: Mendez Yun MD When: Call [phone] for an appointment Test Results: Test results from this visit will be discussed in further detail at your follow- up appointment, if applicable. Discharge Plan Admission Primary Reason for Your Visit: laser stone and stent right Attending Provider: Mendez Yun Primary Care Provider: Endy Sandy Chi Instructions Print Language: Greenlandic Discharge Orders/Prescriptions Prescriptions: New ciprofloxacin HCl [Cipro] 500 mg tablet 500 mg PO BID Qty: 6 0RF oxycodone 5 mg tablet 5 mg PO Q6H PRN (Reason: pain) 3 Days Qty: 14 0RF Continued famotidine 40 mg tablet 40 mg PO DAILY Patient Comments: TAKE 1 TABLET ORALLY ONCE PER DAY FOR 90 DAYS pravastatin 40 mg tablet 40 mg PO QHS Patient Comments: TAKE 1 TABLET BY MOUTH EVERYDAY AT BEDTIME vit C,E,Zn,Wi-kyany8-yxu-zeax 250-2.5-0.5 mg capsule 1 cap PO BID Centrum Silver Ultra Men's 300-600-300 mcg tablet 1 tab PO DAILY NATURAL JOINT 1 cap PO DAILY tamsulosin 0.4 mg capsule 0.4 mg PO QHS phenazopyridine [Pyridium] 100 mg tablet 100 mg PO TID Qty: 14 0RF Referrals / Follow Up: Mendez Yun MD [Med Staff - Active Staff, Urology] Endy Sandy Chi, MD [Primary Care Provider, Geriatrics] Disposition Disposition (needs filled in before D/C Order can be placed): Home, Self Care
--- NOTE | 2025-06-03 15:19 | OP.PCM_ITS ---
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 I discussed with the patient how the surgery would be performed and we reviewed the risks and benefits of the surgery. The risk and benefits include the risk of failure to remove the stone completely and that the patient may need multiple procedures. We discussed the risk of an infection, the risk of bleeding. We discussed the very rare risk of serious complicated injury to the ureter. The patient understands that if the stone is not able to be removed safely that we may abort the procedure and place a stent. After full discussion and all questions address with the patient the consent form was signed the side was marked appropriately and the patient was taken back to the operating room for the procedure. The patient was taken back to the operating room. After induction of anesthesia by the anesthesiology team the patient was placed in dorsolithotomy position. The genitals were prepped and draped in usual sterile fashion. I went into the bladder with a 21 Portuguese rigid cystourethroscope through the urethra. Upon entering the bladder I inspected the trigone the left and right ureteral orifice and the bladder itself. I removed the prior stent on the right. I then cannulated the Right ureteral orifice and advanced a 0.038 Glidewire up into the kidney. Then over the Glidewire I advanced a 5 Fr Ureteral catheter and performed a retrograde pyelogram with about 10cc of contrast, to delineate the anatomy and identify the stone location. Then a ureteral balloon dilator was advanced over the wire and the distal ureter was balloon dilated with a 12 Fr x 5cm balloon dilator. After 3 minutes of dilating the ureter the balloon was backloaded off the 0.038 glidewire over the 0.038 guidewire I went in with the flexible 7.5fr ureteroscope. I was able to go inside with the 7.5Fr utereroscope and I pulled out the guidewire and then through the ureteroscope I engage the stone with laser lithotripsy using a 270miron laser fiber with energy setting of 6 Hertz and 0.6 J until the stone was lasered into tiny little pieces that should pass on their own. A retrograde pyelogram was performed with 10cc of contrast and no extravasation of contrast or perforation was identified in the ureter there was some mild irritation of the ureter where the stone was located. I then backed out of the ureter left the wire in place and then over the 0.038 guidewire I placed a double coiled pigtail ureteral stent. The ureteral stent was advanced over the 0.038 guidewire under direct fluoroscopic guidance and direct cystoscopic visual guidance, once the stent was in good position I pulled the wire and the stent coiled in the kidney and bladder in good position. I then drained the patient's bladder and the cystoscope was removed and the patient was taken back to the recovery room in good position. The patient was given discharge instructions to call the office for instructions on when to come to the office to have the stent removed. Surgical Findings: stone lasered Complications Complications: No Admit VTE Documentation VTE Present on Admission: No VTE Mechan Device Prophylaxis: SCD's VTE Pharm Prophylaxis ordered?: No
--- NOTE | 2025-06-03 15:26 | PCM.POST.ANE ---
Anesthesia: Postop Eval I Current Vital Signs Temperature: 97.3 F Pulse Rate: 75 Blood Pressure: 142/75 Respiratory Rate: 18 Pulse Ox: 98 Assessment Airway patent: Yes Spontaneous unlabored respirations: Yes nausea: No Vomiting: No Anesthesia Complication: No Fluid Hydration Crystalloid volume administer (ml): 500 Total IV fluid infused: 500 Progress Note Anesthesia document: Postop Eval 1 completed: Yes
--- NOTE | 2025-06-03 16:04 | POSTOPAN2_ITS ---
Anesthesia Postop Eval I Sum Postop Eval Completion status Anesthesia document: Postop Eval 1 completed: Yes Anesthesia Postop Eval I Summary Anesthesia Postop Eval I Summary: Anesthesia Postop Eval I: Assessment Summary Airway patent Yes 06/03/25 15:26 VP [email or web address] Spontaneous unlabored Yes 06/03/25 15:26 VP [email or web address] respirations Mental status nausea No 06/03/25 15:26 VP [email or web address].[email or web address] Vomiting No 06/03/25 15:26 VP [email or web address] Anesthesia Postop Eval I: Fluid Summary Crystalloid volume administer 500 06/03/25 15:26 VP [email or web address].SHOF (ml) Colloids volume administered ( ml) Blood Product volume administered (ml) Total IV fluid infused 500 06/03/25 15:26 VP [email or web address] Anesthesia Postop Eval I: Summary Notes Anesthesia Complication No 06/03/25 15:26 VP [email or web address] Anesthesia Complication Comment: Post-operative progress note Anesthesia: Postop Eval II Evaluation Mental status: Awake and Calm Pain Level: 1 nausea: No Vomiting: No Complications Anesthesia Complication: No
--- NOTE | 2025-06-03 16:04 | PCM.POSTANE2 ---
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 Spontaneous unlabored Yes 06/03/25 15:26 BIAS CUTTING MACHINE OPERATOR.SHOF respirations Mental status nausea No 06/03/25 15:26 BIAS CUTTING MACHINE OPERATOR.SHOF Vomiting No 06/03/25 15:26 BIAS CUTTING MACHINE OPERATOR.SHOF Anesthesia Postop Eval I: Fluid Summary Crystalloid volume administer 500 06/03/25 15:26 BIAS CUTTING MACHINE OPERATOR.SHOF (ml) Colloids volume administered ( ml) Blood Product volume administered (ml) Total IV fluid infused 500 06/03/25 15:26 BIAS CUTTING MACHINE OPERATOR.SHOF Anesthesia Postop Eval I: Summary Notes Anesthesia Complication No 06/03/25 15:26 BIAS CUTTING MACHINE OPERATOR.SHOF Anesthesia Complication Comment: Post-operative progress note Anesthesia: Postop Eval II Evaluation Mental status: Awake and Calm Pain Level: 1 nausea: No Vomiting: No Complications Anesthesia Complication: No
== END 2025-06-03 16:22 | disposition home or self-care (01) ==
LOC: SDC 11:20 → AC 11:26
PROVIDERS: PCP Family Medicine Geriatric Medicine; Referring Provider Urology; Visit Provider Urology
PROC: 0TJ98ZZ Inspection of Ureter, Via Natural or Artificial Opening Endoscopic (ICD-10-PCS; CPT 52352; principal; 2025-06-03 13:30)
DX: N20.2 Calculus of kidney with calculus of ureter (principal); E78.00 Pure hypercholesterolemia, unspecified; K21.9 Gastro-esophageal reflux disease without esophagitis; Z79.899 Other long term (current) drug therapy
CPT/HCPCS: 52356; 00873; 76000; C1769; C2617; J2405